=== PATIENT | female | born 1945 | race American Indian/Alaskan Native ===

== ENCOUNTER 2016-07-25 10:51 | Outpatient (CLI) | payer MEDICARE ==
[2016-07-25 13:03] LABS: White Blood Count 8.7 K/mm3 (4.5-11.0)
[2016-07-25 13:04] LABS: Basophils % (Auto) 1.2 % (0.0-1.8); Eosinophils % (Auto) 1.6 % (0.0-4.3); Hematocrit 37.1 % (30.3-42.9); Hemoglobin 11.7 gm/dl (10.1-14.3); Mean Corpuscular HGB Conc 31 % (30-34); Mean Corpuscular Hemoglobin 27 pg (28-32); Mean Corpuscular Volume 85 fl (79-97); Platelet Count 404 K/mm3 (140-440); Red Blood Count 4.34 M/mm3 (3.65-5.03); Red Cell Distribution Width 15.1 % (13.2-15.2)
== END 2016-07-25 10:52 | disposition home or self-care (01) ==
LOC: LAB 10:51
PROVIDERS: ATTEND Internal Medicine
DX: I10 Essential (primary) hypertension (principal); J44.9 Chronic obstructive pulmonary disease, unspecified
CPT/HCPCS: 36415; 80053; 82570; 84156; 85025

== ENCOUNTER 2017-02-23 12:33 | Outpatient (CLI) | payer MEDICARE ==
[2017-02-23 13:02] LABS: Hematocrit 38.7 % (30.3-42.9); Hemoglobin 12.2 gm/dl (10.1-14.3); Mean Corpuscular HGB Conc 31 % (30-34); Mean Corpuscular Hemoglobin 26 pg (28-32); Mean Corpuscular Volume 84 fl (79-97); Platelet Count 412 K/mm3 (140-440); Red Cell Distribution Width 14.9 % (13.2-15.2)
[2017-02-23 13:10] LABS: Creatinine,Urine 22.9 mg/dL (0.1-20.0)
[2017-02-23 13:11] LABS: Protein/Creatinine Ratio,Urine 0.17
[2017-02-23 13:21] LABS: Alanine Aminotransferase 11 units/L (7-56); Albumin 4.2 g/dL (3.9-5); BUN/Creatinine Ratio 14; Blood Urea Nitrogen 13 mg/dL (7-17); Calcium 9.4 mg/dL (8.4-10.2); Hemolysis Index 9
[2017-02-23 14:12] LABS: Basophils % (Manual) 0 % (0.0-1.8); Platelet Estimate Consistent w Auto; RBC Morphology Normal; Total Cells Counted 100
== END 2017-02-23 12:34 | disposition home or self-care (01) ==
LOC: LAB 12:33
PROVIDERS: ATTEND Internal Medicine
DX: I11.0 Hypertensive heart disease with heart failure (principal); I50.9 Heart failure, unspecified; E11.9 Type 2 diabetes mellitus without complications; E87.2 Acidosis; E83.42 Hypomagnesemia; K50.90 Crohn's disease, unspecified, without complications; E87.1 Hypo-osmolality and hyponatremia; E87.6 Hypokalemia; J44.9 Chronic obstructive pulmonary disease, unspecified; J18.9 Pneumonia, unspecified organism
CPT/HCPCS: 36415; 80053; 82570; 84156; 85007; 85025

== ENCOUNTER 2017-05-05 10:04 | Outpatient (CLI) | payer MEDICARE ==
[2017-05-05 10:34] LABS: Basophils # (Auto) 0.1 K/mm3 (0.0-0.1); Basophils % (Auto) 1.3 % (0.0-1.8); Eosinophils # (Auto) 0.1 K/mm3 (0.0-0.4); Eosinophils % (Auto) 0.9 % (0.0-4.3); Hematocrit 37.7 % (30.3-42.9); Hemoglobin 12.3 gm/dl (10.1-14.3); Lymphocytes # (Auto) 2.5 K/mm3 (1.2-5.4); Lymphocytes % (Auto) 23.3 % (13.4-35.0); Mean Corpuscular HGB Conc 33 % (30-34); Mean Corpuscular Hemoglobin 27 pg (28-32); Mean Corpuscular Volume 82 fl (79-97); Monocytes # (Auto) 0.7 K/mm3 (0.0-0.8); Monocytes % (Auto) 6.8 % (0.0-7.3); Platelet Count 383 K/mm3 (140-440); Red Blood Count 4.62 M/mm3 (3.65-5.03); Red Cell Distribution Width 15.7 % (13.2-15.2)
[2017-05-05 10:52] LABS: Alanine Aminotransferase 10 units/L (7-56); BUN/Creatinine Ratio 8; Blood Urea Nitrogen 6 mg/dL (7-17); Calcium 9.1 mg/dL (8.4-10.2); Chol/HDL Ratio 3.19 %; HDL Cholesterol 56 mg/dL (40-59); Hemolysis Index 57
[2017-05-05 11:04] LABS: Erythrocyte Sedimentation Rate 16 mm/Hr (0-20)
[2017-05-05 11:10] LABS: LDL Cholesterol,Direct 116 mg/dL (50-130)
== END 2017-05-05 10:05 | disposition home or self-care (01) ==
LOC: LAB 10:04
DX: I10 Essential (primary) hypertension (principal); K59.1 Functional diarrhea; K50.918 Crohn's disease, unspecified, with other complication; E55.9 Vitamin D deficiency, unspecified; R51 Headache; M54.5 Low back pain; Z79.899 Other long term (current) drug therapy
CPT/HCPCS: 36415; 80053; 80061; 82306; 83036; 84443; 85025; 85652

== ENCOUNTER 2017-06-30 09:08 | Outpatient (CLI) | payer MEDICARE ==
[2017-06-30 09:36] LABS: Basophils # (Auto) 0.1 K/mm3 (0.0-0.1); Basophils % (Auto) 1.1 % (0.0-1.8); Eosinophils # (Auto) 0.2 K/mm3 (0.0-0.4); Hemoglobin 11.6 gm/dl (10.1-14.3); Lymphocytes # (Auto) 3.3 K/mm3 (1.2-5.4); Lymphocytes % (Auto) 32.2 % (13.4-35.0); Mean Corpuscular HGB Conc 32 % (30-34); Mean Corpuscular Hemoglobin 27 pg (28-32); Mean Corpuscular Volume 83 fl (79-97); Monocytes # (Auto) 0.6 K/mm3 (0.0-0.8); Monocytes % (Auto) 5.9 % (0.0-7.3); Platelet Count 387 K/mm3 (140-440); Red Blood Count 4.37 M/mm3 (3.65-5.03); Red Cell Distribution Width 16.1 % (13.2-15.2)
[2017-06-30 09:55] LABS: Alanine Aminotransferase 8 units/L (7-56); Albumin 3.7 g/dL (3.9-5); BUN/Creatinine Ratio 11; Blood Urea Nitrogen 8 mg/dL (7-17); Hemolysis Index 18
[2017-07-03 14:47] LABS: Protein/Creatinine Ratio,Urine 0.07
== END 2017-06-30 09:09 | disposition home or self-care (01) ==
LOC: LAB 09:08
PROVIDERS: ATTEND Internal Medicine
DX: I11.0 Hypertensive heart disease with heart failure (principal); I50.9 Heart failure, unspecified; J44.9 Chronic obstructive pulmonary disease, unspecified; K21.9 Gastro-esophageal reflux disease without esophagitis
CPT/HCPCS: 36415; 80053; 85025

== ENCOUNTER 2017-08-07 09:55 | Outpatient (CLI) | payer MEDICARE ==
[2017-08-07 10:39] LABS: Hematocrit 35.9 % (30.3-42.9); Hemoglobin 11.4 gm/dl (10.1-14.3); Mean Corpuscular HGB Conc 32 % (30-34); Mean Corpuscular Hemoglobin 26 pg (28-32); Mean Corpuscular Volume 83 fl (79-97); Platelet Count 403 K/mm3 (140-440); Red Blood Count 4.32 M/mm3 (3.65-5.03); Red Cell Distribution Width 15.8 % (13.2-15.2)
[2017-08-07 10:58] LABS: Alanine Aminotransferase 11 units/L (7-56); Albumin 3.8 g/dL (3.9-5); BUN/Creatinine Ratio 13; Blood Urea Nitrogen 9 mg/dL (7-17); Calcium 9.7 mg/dL (8.4-10.2); Chol/HDL Ratio 2.81 %; HDL Cholesterol 60 mg/dL (40-59); Hemolysis Index 5; LDL Cholesterol,Direct 113 mg/dL (50-130)
[2017-08-07 11:11] LABS: Free T4 (Free Thyroxine) 1.09 ng/dL (0.76-1.46)
[2017-08-07 12:24] LABS: Platelet Estimate Consistent w Auto; RBC Morphology Normal; Total Cells Counted 100
== END 2017-08-07 09:56 | disposition home or self-care (01) ==
LOC: LAB 09:55
DX: I12.9 Hypertensive chronic kidney disease with stage 1 through stage 4 chronic kidney disease, or unspecified chronic kidney disease (principal); E11.22 Type 2 diabetes mellitus with diabetic chronic kidney disease; E11.42 Type 2 diabetes mellitus with diabetic polyneuropathy; N18.3 Chronic kidney disease, stage 3 (moderate); R53.1 Weakness; R11.0 Nausea; E56.8 Deficiency of other vitamins; K21.9 Gastro-esophageal reflux disease without esophagitis; I25.10 Atherosclerotic heart disease of native coronary artery without angina pectoris; E78.00 Pure hypercholesterolemia, unspecified; J44.9 Chronic obstructive pulmonary disease, unspecified; M19.90 Unspecified osteoarthritis, unspecified site; E07.9 Disorder of thyroid, unspecified; Z87.891 Personal history of nicotine dependence
CPT/HCPCS: 36415; 80053; 80061; 82306; 82607; 82747; 83036; 84439; 84443; 84481; 85007; 85025

== ENCOUNTER 2017-11-02 10:29 | Outpatient (CLI) | payer MEDICARE ==
[2017-11-02 11:48] LABS: Alanine Aminotransferase 6 units/L (7-56); Albumin 4.3 g/dL (3.9-5); BUN/Creatinine Ratio 11; Blood Urea Nitrogen 9 mg/dL (7-17); Calcium 9.5 mg/dL (8.4-10.2); Hemolysis Index 12
[2017-11-02 11:51] LABS: Basophils # (Auto) 0.1 K/mm3 (0.0-0.1); Basophils % (Auto) 1.4 % (0.0-1.8); Eosinophils # (Auto) 0.1 K/mm3 (0.0-0.4); Eosinophils % (Auto) 0.9 % (0.0-4.3); Hematocrit 36.4 % (30.3-42.9); Hemoglobin 11.5 gm/dl (10.1-14.3); Lymphocytes % (Auto) 23.6 % (13.4-35.0); Mean Corpuscular HGB Conc 32 % (30-34); Mean Corpuscular Hemoglobin 27 pg (28-32); Mean Corpuscular Volume 85 fl (79-97); Monocytes # (Auto) 0.5 K/mm3 (0.0-0.8); Monocytes % (Auto) 6.2 % (0.0-7.3); Platelet Count 461 K/mm3 (140-440); Red Cell Distribution Width 15.4 % (13.2-15.2)
[2017-11-03 11:22] LABS: Creatinine,Urine 36.7 mg/dL (0.1-20.0)
[2017-11-04 10:25] LABS: Protein/Creatinine Ratio,Urine 0.08
== END 2017-11-02 10:30 | disposition home or self-care (01) ==
LOC: LAB 10:29
PROVIDERS: ATTEND Internal Medicine
DX: I10 Essential (primary) hypertension (principal); I25.10 Atherosclerotic heart disease of native coronary artery without angina pectoris; E78.00 Pure hypercholesterolemia, unspecified; J44.9 Chronic obstructive pulmonary disease, unspecified; K21.9 Gastro-esophageal reflux disease without esophagitis; M19.90 Unspecified osteoarthritis, unspecified site; E11.9 Type 2 diabetes mellitus without complications; Z87.891 Personal history of nicotine dependence; Z90.89 Acquired absence of other organs; Z90.710 Acquired absence of both cervix and uterus
CPT/HCPCS: 36415; 80053; 82570; 84156; 85025

== ENCOUNTER 2018-02-07 09:31 | Inpatient (IN) | payer MEDICARE ==
[2018-02-07] MEDS ORDERED: PROVENTIL IH ONE ×3 (09:42→13:04)
[2018-02-07] MEDS ORDERED: SOLU-Medrol IV ONE (09:42)
--- NOTE | 2018-02-07 09:43 | Emergency Department Report ---
ED Asthma HPI - General Chief Complaint: Adult Asthma Stated Complaint: ASTHMA/WHEEZING Time Seen by Provider: 02/07/18 09:42 Source: patient, family Mode of arrival: Ambulatory Limitations: No Limitations - History of Present Illness Initial Comments: Patient is a 73-year-old -Martiniquais female who presents to the emergency room complaining of asthma attack and wheezing. She walked from triage to room 36 and was short of breath. Denying chest pain. She had audible wheezing. MD Complaint: shortness of breath, wheezing -: Gradual, days(s) Severity: mild - Related Data Home Medications Medication Instructions Recorded Confirmed Last Taken Albuterol Sulfate [Ventolin HFA] 2 puff IH BID PRN 10/18/12 10/18/12 Unknown Atorvastatin [Lipitor] 40 mg PO DAILY 10/18/12 10/18/12 Unknown Calcium Carbonate/Vitamin D3 1 each PO DAILY 10/18/12 10/18/12 Unknown [Calcium 600 + Vit D Tablet] Cholecalciferol (Vitamin D3) 2,000 unit PO DAILY 10/18/12 10/18/12 Unknown [Vitamin D] Dexlansoprazole [Dexilant] 60 mg PO QDAY 10/18/12 10/18/12 Unknown Fenofibrate,Micronized [Lofibra] 60 mg PO QDAY 10/18/12 10/18/12 Unknown Insulin Detemir [Levemir Flexpen] 100 unit SQ DAILY 10/18/12 10/18/12 Unknown Lisinopril [Zestril] 20 mg PO QDAY 10/18/12 10/18/12 Unknown Mometasone Furoate [Nasonex] 2 spray NS BID 10/18/12 10/18/12 Unknown Nitroglycerin [place] [Nitromist] 1 spray TL PRN PRN 10/18/12 10/18/12 Unknown RX: Aspirin [Aspirin TAB] 325 mg PO QDAY 10/18/12 10/18/12 Unknown RX: Magnesium 400 mg PO DAILY 10/18/12 10/18/12 Unknown RX: Potassium Citrate [Potassium 10 meq PO BID 10/18/12 10/18/12 Unknown Citrate ER] RX: Sodium Bicarbonate 650 mg PO BID 10/18/12 10/18/12 Unknown RX: Spironolactone 25 mg PO DAILY 10/18/12 10/18/12 Unknown amLODIPine [Norvasc] 5 mg PO DAILY 10/18/12 10/18/12 Unknown busPIRone [Buspar] 15 mg PO BID 10/18/12 10/18/12 Unknown Allergies Allergy/AdvReac Type Severity Reaction Status Date / Time No Known Allergies Allergy Verified 11/02/12 11:23 ED Review of Systems ROS: Stated complaint: ASTHMA/WHEEZING Other details as noted in HPI Comment: All other systems reviewed and negative Constitutional: denies: chills, fever Eyes: denies: eye pain, eye discharge ENT: denies: ear pain, throat pain, dental pain Respiratory: see HPI, cough, wheezing Cardiovascular: dyspnea on exertion. denies: chest pain, palpitations, orthopnea Endocrine: denies: excessive sweating Gastrointestinal: denies: nausea Genitourinary: denies: urgency Musculoskeletal: denies: back pain Skin: denies: lesions Neurological: denies: headache Psychiatric: denies: anxiety Hematological/Lymphatic: denies: easy bleeding ED Past Medical Hx - Past Medical History Hx Hypertension: Yes (diagnosed in 1988) Hx Heart Attack/AMI: Yes (x2. 10-11 years ago) Hx Diabetes: Yes (steroid induced insulin use/2011) Hx GERD: Yes (2002) Hx Liver Disease: No Hx Renal Disease: Yes (pt sees a hog cooler but does not remember the name of disease) Hx Sickle Cell Disease: No Hx Arthritis: Yes Hx Seizures: No Hx Asthma: No Hx COPD: Yes Additional medical history: Chrones - Surgical History Hx Pacemaker: No Hx Internal Defibrillator: No Additional Surgical History: hip replacement bilat, hysterectomy, bilat shoulder replacement. - Family History Family history: no significant - Social History Smoking Status: Never Smoker - Medications Home Medications: Home Medications Medication Instructions Recorded Confirmed Last Taken Type Albuterol Sulfate [Ventolin HFA] 2 puff IH BID PRN 10/18/12 10/18/12 Unknown History Atorvastatin [Lipitor] 40 mg PO DAILY 10/18/12 10/18/12 Unknown History Calcium Carbonate/Vitamin D3 1 each PO DAILY 10/18/12 10/18/12 Unknown History [Calcium 600 + Vit D Tablet] Cholecalciferol (Vitamin D3) 2,000 unit PO DAILY 10/18/12 10/18/12 Unknown History [Vitamin D] Dexlansoprazole [Dexilant] 60 mg PO QDAY 10/18/12 10/18/12 Unknown History Fenofibrate,Micronized [Lofibra] 60 mg PO QDAY 10/18/12 10/18/12 Unknown History Insulin Detemir [Levemir Flexpen] 100 unit SQ DAILY 10/18/12 10/18/12 Unknown History Lisinopril [Zestril] 20 mg PO QDAY 10/18/12 10/18/12 Unknown History Mometasone Furoate [Nasonex] 2 spray NS BID 10/18/12 10/18/12 Unknown History Nitroglycerin [place] [Nitromist] 1 spray TL PRN PRN 10/18/12 10/18/12 Unknown History RX: Aspirin [Aspirin TAB] 325 mg PO QDAY 10/18/12 10/18/12 Unknown History RX: Magnesium 400 mg PO DAILY 10/18/12 10/18/12 Unknown History RX: Potassium Citrate [Potassium 10 meq PO BID 10/18/12 10/18/12 Unknown History Citrate ER] RX: Sodium Bicarbonate 650 mg PO BID 10/18/12 10/18/12 Unknown History RX: Spironolactone 25 mg PO DAILY 10/18/12 10/18/12 Unknown History amLODIPine [Norvasc] 5 mg PO DAILY 10/18/12 10/18/12 Unknown History busPIRone [Buspar] 15 mg PO BID 10/18/12 10/18/12 Unknown History ED Physical Exam - General Limitations: No Limitations General appearance: alert, in no apparent distress - Head Head exam: Present: atraumatic - Eye Eye exam: Present: normal appearance, PERRL, EOMI - ENT ENT exam: Present: mucous membranes moist - Neck Neck exam: Present: normal inspection - Respiratory Respiratory exam: Present: wheezes - Cardiovascular Cardiovascular Exam: Present: regular rate - GI/Abdominal GI/Abdominal exam: Present: soft, normal bowel sounds - Rectal Rectal exam: Present: deferred - Extremities Exam Extremities exam: Present: normal inspection, full ROM - Back Exam Back exam: Present: normal inspection, full ROM - Neurological Exam Neurological exam: Present: alert, oriented X3 - Psychiatric Psychiatric exam: Present: normal affect, normal mood - Skin Skin exam: Present: warm, dry, intact ED Course Vital Signs 02/07/18 02/07/18 02/07/18 09:34 09:45 10:25 Temperature 99.5 F Pulse Rate 80 Pulse Rate [ 80 85 Anterior Bilateral Throughout] Respiratory 20 Rate Respiratory 20 20 Rate [Anterior Bilateral Throughout] Blood Pressure 101/77 O2 Sat by Pulse 98 Oximetry 02/07/18 02/07/18 02/07/18 11:20 11:50 13:10 Temperature Pulse Rate Pulse Rate [ 82 87 83 Anterior Bilateral Throughout] Respiratory Rate Respiratory 18 18 18 Rate [Anterior Bilateral Throughout] Blood Pressure O2 Sat by Pulse Oximetry - Reevaluation(s) Reevaluation #1: 02/07/18 After 2 DuoNeb treatments and IV Solu-Medrol patient's wheezing actually worsened. Magnesium 2 g IV was given without much improvement. Oxygen saturation was noted to be 89 on room air on repeat vital signs. The patient was placed on 2 L nasal cannula and saturations went to 98%. ABG was drawn on room air, however, the respiratory therapist did not wait an adequate amount of time before removing the nasal cannula when she treated gas. With this being said the PaO2 was 70. Patient is not hypercarbic and her pH is normal. Her sat on gas was 95%. Chest x-ray is without consolidation. There is no evidence of pulmonary edema or heart failure. Patient is not tachycardic as one would expect she would be if she had a PE. She has no history of PE. Patient denies any chest pain. Labs have been noted. The CBC is normal. Patient is afebrile. Given patient's persistent wheezing despite IV Solu-Medrol, to do her nebs, and 2 g of mag patient is being moved to the main ED for further management by Dr. Sullivan. Note Oxygen sat to 89 on room air at rest With 2 L NC it goes to 98-99. RN asked to chart. Pt not tachycardic. ED Medical Decision Making - Lab Data Result diagrams: 02/07/18 09:46 02/07/18 09:46 - Radiology Data Radiology results: report reviewed, image reviewed - Medical Decision Making Treatment in ACC: 2 duoneb, 125 mg IV solumedral, 500 mg PO azithromycin and 2 GM IV Mg Given persistent wheezing pt moved to ER [address] Sullivan. Lab Results 02/07/18 02/07/18 Range/Units 09:46 09:46 WBC 7.4 (4.5-11.0) K/mm3 RBC 4.52 (3.65-5.03) M/mm3 Hgb 12.0 (10.1-14.3) gm/dl Hct 36.2 (30.3-42.9) % MCV 80 (79-97) fl MCH 27 L (28-32) pg MCHC 33 (30-34) % RDW 16.5 H (13.2-15.2) % Plt Count 337 (140-440) K/mm3 Add Manual Diff Complete Total Counted 100 Seg Neuts % (Manual) 60.0 (40.0-70.0) % Band Neutrophils % 1.0 % Lymphocytes % (Manual) 20.0 (13.4-35.0) % Reactive Lymphs % (Man) 0 % Monocytes % (Manual) 13.0 H (0.0-7.3) % Eosinophils % (Manual) 6.0 H (0.0-4.3) % Basophils % (Manual) 0 (0.0-1.8) % Metamyelocytes % 0 % Myelocytes % 0 % Promyelocytes % 0 % Blast Cells % 0 % Nucleated RBC % Not Reportable Seg Neutrophils # Man 0.0 L (1.8-7.7) K/mm3 Band Neutrophils # 0.0 K/mm3 Lymphocytes # (Manual) 0.0 L (1.2-5.4) K/mm3 Abs React Lymphs (Man) 0.0 K/mm3 Monocytes # (Manual) 0.0 (0.0-0.8) K/mm3 Eosinophils # (Manual) 0.0 (0.0-0.4) K/mm3 Basophils # (Manual) 0.0 (0.0-0.1) K/mm3 Metamyelocytes # 0.0 K/mm3 Myelocytes # 0.0 K/mm3 Promyelocytes # 0.0 K/mm3 Blast Cells # 0.0 K/mm3 WBC Morphology Not Reportable Hypersegmented Neuts Not Reportable Hyposegmented Neuts Not Reportable Hypogranular Neuts Not Reportable Smudge Cells Not Reportable Toxic Granulation Not Reportable Toxic Vacuolation Not Reportable Dohle Bodies Not Reportable Pelger-Huet Anomaly Not Reportable Samuel Rods Not Reportable Platelet Estimate Appears normal Clumped Platelets Rare Plt Clumps, EDTA Not Reportable Large Platelets Not Reportable Giant Platelets Not Reportable Platelet Satelliting Not Reportable Plt Morphology Comment Not Reportable RBC Morphology Normal Dimorphic RBCs Not Reportable Polychromasia Not Reportable Hypochromasia Not Reportable Poikilocytosis Not Reportable Anisocytosis Not Reportable Microcytosis Not Reportable Macrocytosis Not Reportable Spherocytes Not Reportable Pappenheimer Bodies Not Reportable Sickle Cells Not Reportable Target Cells Not Reportable Tear Drop Cells Not Reportable Ovalocytes Not Reportable Helmet Cells Not Reportable [place] Bodies Not Reportable [place] Rings Not Reportable [place] Cells Not Reportable Bite Cells Not Reportable Crenated Cell Not Reportable Elliptocytes Not Reportable Acanthocytes (Spur) Not Reportable Rouleaux Not Reportable Hemoglobin C Crystals Not Reportable Schistocytes Not Reportable Malaria parasites Not Reportable Mika Bodies Not Reportable Hem Pathologist Commnt No Sodium 137 (137-145) mmol/L Potassium 3.9 (3.6-5.0) mmol/L Chloride 98.9 (98-107) mmol/L Carbon Dioxide 22 (22-30) mmol/L Anion Gap 20 mmol/L BUN 6 L (7-17) mg/dL Creatinine 0.7 (0.7-1.2) mg/dL Estimated GFR > 60 ml/min BUN/Creatinine Ratio 9 % Glucose 132 H (65-100) mg/dL Calcium 9.0 (8.4-10.2) mg/dL Total Bilirubin < 0.20 (0.1-1.2) mg/dL AST 38 (5-40) units/L ALT 18 (7-56) units/L Alkaline Phosphatase 97 (35-129) units/L Total Protein 7.3 (6.3-8.2) g/dL Albumin 3.8 L (3.9-5) g/dL Albumin/Globulin Ratio 1.1 % Critical care attestation.: If time is entered above; I have spent that time in minutes in the direct care of this critically ill patient, excluding procedure time. ED Disposition Clinical Impression: Asthma Disposition: DC- OP ADMIT IP TO THIS HOSP Is pt being admited?: No Does the pt Need Aspirin: No Condition: Stable Instructions: Asthma (ED) Referrals: PRIMARY CARE, [Primary Care Provider] - 3-5 Days
[2018-02-07 10:11] LABS: Hematocrit 36.2 % (30.3-42.9); Mean Corpuscular HGB Conc 33 % (30-34); Mean Corpuscular Hemoglobin 27 pg (28-32); Mean Corpuscular Volume 80 fl (79-97); Red Blood Count 4.52 M/mm3 (3.65-5.03); Red Cell Distribution Width 16.5 % (13.2-15.2)
[2018-02-07 10:29] LABS: Alanine Aminotransferase 18 units/L (7-56); Albumin 3.8 g/dL (3.9-5); BUN/Creatinine Ratio 9; Blood Urea Nitrogen 6 mg/dL (7-17); Hemolysis Index 89
--- NOTE | 2018-02-07 10:41 | XRay Report ---
CHEST 2 VIEWS INDICATION: Shortness of breath. COMPARISON: 09/01/2011 FINDINGS: Frontal and lateral chest radiographs demonstrate normal cardiomediastinal silhouette. Mild aortic knob calcifications. Right hemidiaphragm again approximately 4.5 cm higher than the left. Clear lungs. Stable left and new right shoulder replacement. Lower lumbar posterior fusion hardware incompletely imaged. Abdominal aortic atherosclerotic calcifications also seen. Demineralized bones. CONCLUSION: No acute chest process with interval right shoulder replacement since 2011. Thank you for the opportunity to participate in this patient's care.
[2018-02-07] MEDS ORDERED: ZITHROMAX PO ONE ×2 (10:45)
[2018-02-07 10:53] LABS: Basophils % (Manual) 0 % (0.0-1.8); Total Cells Counted 100
[2018-02-07 10:54] LABS: Platelet Clumps Rare; Platelet Count 337 K/mm3 (140-440); RBC Morphology Normal
[2018-02-07] MEDS ORDERED: MOTRIN PO ONE (11:14)
[2018-02-07] MEDS ORDERED: MAGNESIUM SULFATE 2GM/50ML 2 GM/50 ML BAG IV ONE (11:30)
[2018-02-07] MEDS ORDERED: ATROVENT IH ONE (13:04)
--- NOTE | 2018-02-07 13:10 | Emergency Department Report ---
HPI - General Chief Complaint: Adult Asthma Time Seen by Provider: 02/07/18 09:42 - HPI HPI: Room 6 The patient is a 73-year-old female from the [facility] for further management with chief complaint of shortness of breath. The patient reports shortness of breath and wheezing for one week. Patient states she's had a cough productive of yellow sputum and a fever of 101F MAXIMUM TEMPERATURE. Patient admits to rhinorrhea but denies any sick contacts. She states she's also had intermittent chest heaviness for one week but denies nausea/vomiting or diaphoresis. Location: Lungs, chest Duration: One week Quality: Shortness of breath/wheezing Severity: Moderate Modifying factors: [see above] Context: [see above] Mode of transportation: [not driving] ED Past Medical Hx - Past Medical History Hx Hypertension: Yes (diagnosed in 1988) Hx Heart Attack/AMI: Yes (x2. 10-11 years ago) Hx Diabetes: Yes (steroid induced insulin use/2011) Hx GERD: Yes (2002) Hx Renal Disease: Yes (pt sees a supervisor counseling and guidance but does not remember the name of disease) Hx Arthritis: Yes Hx COPD: Yes Additional medical history: Chrones - Surgical History Additional Surgical History: hip replacement bilat, hysterectomy, bilat shoulder replacement. - Family History Family history: no significant - Social History Smoking Status: Former Smoker (none 15 years) Substance Use Type: Alcohol (occasional beer) - Medications Home Medications: Home Medications Medication Instructions Recorded Confirmed Last Taken Type Albuterol Sulfate [Ventolin HFA] 2 puff IH BID PRN 10/18/12 10/18/12 Unknown History Aspirin [Aspirin TAB] 325 mg PO QDAY 10/18/12 10/18/12 Unknown History Atorvastatin [Lipitor] 40 mg PO DAILY 10/18/12 10/18/12 Unknown History Calcium Carbonate/Vitamin D3 1 each PO DAILY 10/18/12 10/18/12 Unknown History [Calcium 600 + Vit D Tablet] Cholecalciferol (Vitamin D3) 2,000 unit PO DAILY 10/18/12 10/18/12 Unknown History [Vitamin D] Dexlansoprazole [Dexilant] 60 mg PO QDAY 10/18/12 10/18/12 Unknown History Fenofibrate,Micronized [Lofibra] 60 mg PO QDAY 10/18/12 10/18/12 Unknown History Insulin Detemir [Levemir Flexpen] 100 unit SQ DAILY 10/18/12 10/18/12 Unknown History Lisinopril [Zestril] 20 mg PO QDAY 10/18/12 10/18/12 Unknown History Magnesium 400 mg PO DAILY 10/18/12 10/18/12 Unknown History Mometasone Furoate [Nasonex] 2 spray NS BID 10/18/12 10/18/12 Unknown History Nitroglycerin [place] [Nitromist] 1 spray TL PRN PRN 10/18/12 10/18/12 Unknown History Potassium Citrate [Potassium 10 meq PO BID 10/18/12 10/18/12 Unknown History Citrate ER] Sodium Bicarbonate 650 mg PO BID 10/18/12 10/18/12 Unknown History Spironolactone 25 mg PO DAILY 10/18/12 10/18/12 Unknown History amLODIPine [Norvasc] 5 mg PO DAILY 10/18/12 10/18/12 Unknown History busPIRone [Buspar] 15 mg PO BID 10/18/12 10/18/12 Unknown History ED Review of Systems ROS: Stated complaint: ASTHMA/WHEEZING Other details as noted in HPI Constitutional: fever Eyes: denies: eye pain ENT: denies: throat pain Respiratory: cough, wheezing Cardiovascular: chest pain Endocrine: no symptoms reported Gastrointestinal: denies: abdominal pain Genitourinary: denies: dysuria Musculoskeletal: denies: back pain Neurological: denies: headache Physical Exam - Physical Exam Vital Signs: Vital Signs 02/07/18 02/07/18 02/07/18 09:34 09:45 10:25 Temperature 99.5 F Pulse Rate 80 Pulse Rate [ 80 85 Anterior Bilateral Throughout] Respiratory 20 Rate Respiratory 20 20 Rate [Anterior Bilateral Throughout] Blood Pressure 101/77 O2 Sat by Pulse 98 Oximetry 02/07/18 02/07/18 11:20 11:50 Temperature Pulse Rate Pulse Rate [ 82 87 Anterior Bilateral Throughout] Respiratory Rate Respiratory 18 18 Rate [Anterior Bilateral Throughout] Blood Pressure O2 Sat by Pulse Oximetry Physical Exam: GENERAL: The patient is well-developed well-nourished female sitting on stretcher not appearing to be in acute distress. [] HEENT: Normocephalic. Atraumatic. Extraocular motions are intact. Patient has moist mucous membranes. NECK: Supple. Trachea midline CHEST/LUNGS: Diffuse wheezing. There is no respiratory distress noted. HEART/CARDIOVASCULAR: Regular. There is no tachycardia. There is no gallop rub or murmur. ABDOMEN: Abdomen is soft, nontender. Patient has normal bowel sounds. There is no abdominal distention. SKIN: There is no rash. There is no edema. There is no diaphoresis. NEURO: The patient is awake, alert, and oriented. The patient is cooperative. The patient has normal speech MUSCULOSKELETAL: There is no evidence of acute injury. ED Course Vital Signs 02/07/18 02/07/18 02/07/18 09:34 09:45 10:25 Temperature 99.5 F Pulse Rate 80 Pulse Rate [ 80 85 Anterior Bilateral Throughout] Respiratory 20 Rate Respiratory 20 20 Rate [Anterior Bilateral Throughout] Blood Pressure 101/77 O2 Sat by Pulse 98 Oximetry 02/07/18 02/07/18 11:20 11:50 Temperature Pulse Rate Pulse Rate [ 82 87 Anterior Bilateral Throughout] Respiratory Rate Respiratory 18 18 Rate [Anterior Bilateral Throughout] Blood Pressure O2 Sat by Pulse Oximetry ED Medical Decision Making - Lab Data Result diagrams: 02/07/18 09:46 02/07/18 09:46 Laboratory Tests 02/07/18 02/07/18 02/07/18 09:46 09:46 09:46 WBC 7.4 RBC 4.52 Hgb 12.0 Hct 36.2 MCV 80 MCH 27 L MCHC 33 RDW 16.5 H Plt Count 337 Add Manual Diff Complete Total Counted 100 Seg Neuts % (Manual) 60.0 Band Neutrophils % 1.0 Lymphocytes % (Manual) 20.0 Reactive Lymphs % (Man) 0 Monocytes % (Manual) 13.0 H Eosinophils % (Manual) 6.0 H Basophils % (Manual) 0 Metamyelocytes % 0 Myelocytes % 0 Promyelocytes % 0 Blast Cells % 0 Nucleated RBC % Not Reportable Seg Neutrophils # Man 0.0 L Band Neutrophils # 0.0 Lymphocytes # (Manual) 0.0 L Abs React Lymphs (Man) 0.0 Monocytes # (Manual) 0.0 Eosinophils # (Manual) 0.0 Basophils # (Manual) 0.0 Metamyelocytes # 0.0 Myelocytes # 0.0 Promyelocytes # 0.0 Blast Cells # 0.0 WBC Morphology Not Reportable Hypersegmented Neuts Not Reportable Hyposegmented Neuts Not Reportable Hypogranular Neuts Not Reportable Smudge Cells Not Reportable Toxic Granulation Not Reportable Toxic Vacuolation Not Reportable Dohle Bodies Not Reportable Pelger-Huet Anomaly Not Reportable Samuel Rods Not Reportable Platelet Estimate Appears normal Clumped Platelets Rare Plt Clumps, EDTA Not Reportable Large Platelets Not Reportable Giant Platelets Not Reportable Platelet Satelliting Not Reportable Plt Morphology Comment Not Reportable RBC Morphology Normal Dimorphic RBCs Not Reportable Polychromasia Not Reportable Hypochromasia Not Reportable Poikilocytosis Not Reportable Anisocytosis Not Reportable Microcytosis Not Reportable Macrocytosis Not Reportable Spherocytes Not Reportable Pappenheimer Bodies Not Reportable Sickle Cells Not Reportable Target Cells Not Reportable Tear Drop Cells Not Reportable Ovalocytes Not Reportable Helmet Cells Not Reportable [place] Bodies Not Reportable [place] Rings Not Reportable [place] Cells Not Reportable Bite Cells Not Reportable Crenated Cell Not Reportable Elliptocytes Not Reportable Acanthocytes (Spur) Not Reportable Rouleaux Not Reportable Hemoglobin C Crystals Not Reportable Schistocytes Not Reportable Malaria parasites Not Reportable Mika Bodies Not Reportable Hem Pathologist Commnt No POC ABG pH POC ABG pCO2 POC ABG pO2 POC ABG HCO3 POC ABG Total CO2 POC ABG O2 Sat POC ABG Base Excess FiO2 Sodium 137 Potassium 3.9 Chloride 98.9 Carbon Dioxide 22 Anion Gap 20 BUN 6 L Creatinine 0.7 Estimated GFR > 60 BUN/Creatinine Ratio 9 Glucose 132 H Calcium 9.0 Total Bilirubin < 0.20 AST 38 ALT 18 Alkaline Phosphatase 97 Total Creatine Kinase 254 H CK-MB (CK-2) 1.9 CK-MB (CK-2) Rel Index 0.7 Troponin T < 0.010 NT-Pro-B Natriuret Pep Total Protein 7.3 Albumin 3.8 L Albumin/Globulin Ratio 1.1 Influenza A (Rapid) Influenza B (Rapid) 02/07/18 02/07/18 02/07/18 09:46 12:19 Unknown WBC RBC Hgb Hct MCV MCH MCHC RDW Plt Count Add Manual Diff Total Counted Seg Neuts % (Manual) Band Neutrophils % Lymphocytes % (Manual) Reactive Lymphs % (Man) Monocytes % (Manual) Eosinophils % (Manual) Basophils % (Manual) Metamyelocytes % Myelocytes % Promyelocytes % Blast Cells % Nucleated RBC % Seg Neutrophils # Man Band Neutrophils # Lymphocytes # (Manual) Abs React Lymphs (Man) Monocytes # (Manual) Eosinophils # (Manual) Basophils # (Manual) Metamyelocytes # Myelocytes # Promyelocytes # Blast Cells # WBC Morphology Hypersegmented Neuts Hyposegmented Neuts Hypogranular Neuts Smudge Cells Toxic Granulation Toxic Vacuolation Dohle Bodies Pelger-Huet Anomaly Samuel Rods Platelet Estimate Clumped Platelets Plt Clumps, EDTA Large Platelets Giant Platelets Platelet Satelliting Plt Morphology Comment RBC Morphology Dimorphic RBCs Polychromasia Hypochromasia Poikilocytosis Anisocytosis Microcytosis Macrocytosis Spherocytes Pappenheimer Bodies Sickle Cells Target Cells Tear Drop Cells Ovalocytes Helmet Cells [place] Bodies [place] Rings [place] Cells Bite Cells Crenated Cell Elliptocytes Acanthocytes (Spur) Rouleaux Hemoglobin C Crystals Schistocytes Malaria parasites Mika Bodies Hem Pathologist Commnt POC ABG pH 7.447 POC ABG pCO2 32.2 L POC ABG pO2 71 L POC ABG HCO3 22.3 POC ABG Total CO2 23 POC ABG O2 Sat 95 POC ABG Base Excess -2 FiO2 21 Sodium Potassium Chloride Carbon Dioxide Anion Gap BUN Creatinine Estimated GFR BUN/Creatinine Ratio Glucose Calcium Total Bilirubin AST ALT Alkaline Phosphatase Total Creatine Kinase CK-MB (CK-2) CK-MB (CK-2) Rel Index Troponin T NT-Pro-B Natriuret Pep 25.51 Total Protein Albumin Albumin/Globulin Ratio Influenza A (Rapid) Positive A Influenza B (Rapid) Negative - EKG Data -: EKG Interpreted by Me EKG shows normal: sinus rhythm Rate: normal - EKG Data When compared to previous EKG there are: previous EKG unavailable Interpretation: other (no ischemic changes seen) - Radiology Data Radiology results: report reviewed (chest x-ray), image reviewed (chest x-ray) interpreted by me: Chest x-ray-no focal infiltrates, no pneumothorax Findings [facility] [address] [place] [address] XRay Report Signed Patient: SARAI RAMOS MR#: [id number] : 1945 A cct:[id number] Age/Sex: 73 / F ADM Date: 02/07/18 Loc: ED Attending Dr: Ordering Physician: DOROTHY TAYLOR Date of Service: 02/07/18 Procedure(s): XR chest routine 2V Accession Number(s): [id number] cc: DOROTHY TAYLOR Fluoro Time In Minutes: CHEST 2 VIEWS INDICATION: Shortness of breath. COMPARISON: 09/01/2011 FINDINGS: Frontal and lateral chest radiographs demonstrate normal cardiomediastinal silhouette. Mild aortic knob calcifications. Right hemidiaphragm again approximately 4.5 cm higher than the left. Clear lungs. Stable left and new right shoulder replacement. Lower lumbar posterior fusion hardware incompletely imaged. Abdominal aortic atherosclerotic calcifications also seen. Demineralized bones. CONCLUSION: No acute chest process with interval right shoulder replacement since 2011. Thank you for the opportunity to participate in this patient's care. Transcribed By: RS Dictated By: MARINA CARSON MD Electronically Authenticated By: MARINA CARSON MD Signed Date/Time: 02/07/18 1037 DD/ 1034 TD/TT: 02/07/18 1037 - Differential Diagnosis asthma exacerbation, pneumonia, bronchitis, CHF, ACS Critical care attestation.: If time is entered above; I have spent that time in minutes in the direct care of this critically ill patient, excluding procedure time. ED Disposition Clinical Impression: Asthma, Shortness of breath, Acute asthma exacerbation, Chest heaviness, Influenza Disposition: OP ADMIT IP TO THIS HOSP Is pt being admited?: Yes Does the pt Need Aspirin: Yes Condition: Stable Instructions: Asthma (ED) Referrals: PRIMARY CARE, [Primary Care Provider] - 3-5 Days Time of Disposition: 13:41 (hospitalist notified (Dr Carrington))
[2018-02-07 13:27] LABS: Creatine Kinase MB 1.9 ng/mL (0.0-4.0)
--- NOTE | 2018-02-07 13:41 | History and Physical Report ---
History of Present Illness Chief complaint: I cant breathe, and i just feel tired History of present illness: 73 YO Female with HTN, CA, DM, GERD, OA, COPD presents to ED for evalualtion. Pt states that she has experienced generalized fatigue, shortness of breath over the past week with persistent symptoms during the same time frame. Pt acknowledges fever to 101, productive cough of yellow sputum as well as runny n ose. Pt denies CP, Palpitations, NVD, Trauma, skin rash, or recent ill contacts, unilateral leg swelling, calf pain, prolonged travel/immobility, hemoptysis, individual/family history of DVT/PE/Blood Clotting disorder, Calf pain. Pt seen and evaluated in ED and found to have COPD exacerbation, complicated by Acute respiratory failure as well as influenza. Pt treated with supplemental oxygen, empiric antibiotic therapy and initiated on Tamiflu. Pt placed on droplet precaution. Pt admitted to medical floor. Past History Past Medical History: acute CA, arthritis, COPD, diabetes, GERD, other (Crohns Disease) Past Surgical History: hysterectomy, total hip replacement, Other (shoulder surgery) Social history: . denies: smoking, alcohol abuse, prescription drug abuse Family history: denies: no significant family history, CAD, cancer, diabetes Medications and Allergies Allergies Allergy/AdvReac Type Severity Reaction Status Date / Time No Known Allergies Allergy Verified 11/02/12 11:23 Home Medications Medication Instructions Recorded Confirmed Last Taken Type Albuterol Sulfate [Ventolin HFA] 2 puff IH BID PRN 10/18/12 02/07/18 02/06/18 History Aspirin [Aspirin TAB] 325 mg PO QDAY 10/18/12 02/07/18 02/06/18 History Atorvastatin [Lipitor] 40 mg PO DAILY 10/18/12 02/07/18 02/06/18 History Calcium Carbonate/Vitamin D3 1 each PO DAILY 10/18/12 02/07/18 02/06/18 History [Calcium 600 + Vit D Tablet] Cholecalciferol (Vitamin D3) 2,000 unit PO DAILY 10/18/12 02/07/18 02/06/18 History [Vitamin D] Dexlansoprazole [Dexilant] 60 mg PO QDAY 10/18/12 02/07/18 02/06/18 History Fenofibrate,Micronized [Lofibra] 60 mg PO QDAY 10/18/12 02/07/18 02/06/18 History Insulin Detemir [Levemir Flexpen] 27 units SUB-Q QPM 10/18/12 02/07/18 02/06/18 History Lisinopril [Zestril] 20 mg PO QDAY 10/18/12 02/07/18 02/06/18 History Magnesium 400 mg PO DAILY 10/18/12 02/07/18 02/06/18 History Mometasone Furoate [Nasonex] 2 spray NS BID 10/18/12 02/07/18 Unknown History Nitroglycerin [place] [Nitromist] 1 spray TL PRN PRN 10/18/12 02/07/18 Unknown History Potassium Citrate [Potassium 10 meq PO BID 10/18/12 02/07/18 02/06/18 History Citrate ER] Sodium Bicarbonate 650 mg PO BID 10/18/12 02/07/18 02/06/18 History Spironolactone 25 mg PO DAILY 10/18/12 02/07/18 02/06/18 History amLODIPine [Norvasc] 5 mg PO DAILY 10/18/12 02/07/18 02/06/18 History busPIRone [Buspar] 15 mg PO BID 10/18/12 02/07/18 02/06/18 History Review of Systems Constitutional: no weight loss, no weight gain, no fever, no chills Ears, nose, mouth and throat: no ear pain, no ear discharge, no tinnitis, no decreased hearing, no nose pain Breasts: no change in shape, no swelling, no mass Cardiovascular: no chest pain, no orthopnea, no palpitations, no rapid/irregular heart beat, no edema Respiratory: cough, shortness of breath, congestion, wheezing, no pain on inspiration Gastrointestinal: no nausea, no vomiting, no diarrhea, no constipation Genitourinary Female: no dysmenorrhea, no pelvic pain, no flank pain, no menorrhagia, no dysuria, no urinary frequency, no urgency Rectal: no pain, no incontinence, no bleeding Musculoskeletal: no neck stiffness, no neck pain, no shooting arm pain, no arm numbness/tingling, no low back pain Integumentary: no rash, no pruritis, no redness, no sores, no wounds Neurological: no head injury, no transient paralysis, no paralysis, no weakness, no parathesias, no numbness, no tingling, no seizures Psychiatric: no anxiety, no change in sleep habits, no sleep disturbances, no insomnia, no paranoia, no hopelessness, no anhedonia Endocrine: no cold intolerance, no heat intolerance, no polyphagia, no excessive thirst, no polydipsia, no excessive sweating Hematologic/Lymphatic: no easy bruising, no easy bleeding, no lymphadenopathy, no lymphedema Allergic/Immunologic: no urticaria, no allergic rhinitis, no wheezing, no persistent infections, no anaphylaxis Exam - Constitutional Vitals: Temp Pulse Resp BP Pulse Ox 99.5 F 83 18 101/77 98 02/07/18 09:34 02/07/18 13:10 02/07/18 13:10 02/07/18 09:34 02/07/18 09:34 General appearance: Present: mild distress, obese - EENT Eyes: Present: PERRL ENT: hearing intact, clear oral mucosa - Neck Neck: Present: supple, normal ROM - Respiratory Respiratory effort: normal Respiratory: bilateral: diminished, wheezing - Cardiovascular Heart Sounds: Present: S1 & S2. Absent: rub, click - Extremities Extremities: pulses symmetrical, No edema Peripheral Pulses: within normal limits - Abdominal General gastrointestinal: Present: soft, non-tender, non-distended, normal bowel sounds Female genitourinary: Present: normal - Integumentary Integumentary: Present: clear, warm, dry - Musculoskeletal Musculoskeletal: gait normal, strength equal bilaterally - Psychiatric Psychiatric: appropriate mood/affect, intact judgment & insight - Neurologic Neurologic: CNII-XII intact, moves all extremities Results - Labs CBC & Chem 7: 02/07/18 09:46 02/07/18 09:46 Labs: Abnormal lab results 02/07/18 02/07/18 02/07/18 Range/Units 09:46 09:46 09:46 MCH 27 L (28-32) pg RDW 16.5 H (13.2-15.2) % Monocytes % (Manual) 13.0 H (0.0-7.3) % Eosinophils % (Manual) 6.0 H (0.0-4.3) % Seg Neutrophils # Man 0.0 L (1.8-7.7) K/mm3 Lymphocytes # (Manual) 0.0 L (1.2-5.4) K/mm3 POC ABG pCO2 (35-45) POC ABG pO2 (80-105) BUN 6 L (7-17) mg/dL Glucose 132 H (65-100) mg/dL Total Creatine Kinase 254 H (30-135) units/L Albumin 3.8 L (3.9-5) g/dL Influenza A (Rapid) (Negative) 02/07/18 02/07/18 Range/Units 12:19 Unknown MCH (28-32) pg RDW (13.2-15.2) % Monocytes % (Manual) (0.0-7.3) % Eosinophils % (Manual) (0.0-4.3) % Seg Neutrophils # Man (1.8-7.7) K/mm3 Lymphocytes # (Manual) (1.2-5.4) K/mm3 POC ABG pCO2 32.2 L (35-45) POC ABG pO2 71 L (80-105) BUN (7-17) mg/dL Glucose (65-100) mg/dL Total Creatine Kinase (30-135) units/L Albumin (3.9-5) g/dL Influenza A (Rapid) Positive A (Negative) Assessment and Plan - Patient Problems (1) COPD with exacerbation Current Visit: Yes Status: Acute Plan to address problem: Supplemental oxygen, nebulizer therapy, IV steroid therapy in ED, chext x ray, NIPPV as clinically indicated, (2) Respiratory failure Current Visit: Yes Status: Acute Qualifiers: Chronicity: acute Respiratory failure complication: hypoxia Qualified Code(s): J96.01 - Acute respiratory failure with hypoxia Plan to address problem: ABG, BNP, chest x ray, supplemental oxygen, nebulizer therapy, NIPPV as clinically indicated (3) Influenza Current Visit: Yes Status: Acute Plan to address problem: Tamiflu, droplet precautions, (4) DVT prophylaxis Current Visit: Yes Status: Acute Plan to address problem: SCD to BLE while in bed.
[2018-02-07] MEDS ORDERED: PROVENTIL IH PRN (13:45)
[2018-02-07] MEDS ORDERED: ZOFRAN IV PRN (13:45)
[2018-02-07] MEDS ORDERED: SODIUM CHLORIDE FLUSH SYRINGE 10 ML IV PRN (13:45)
[2018-02-07] MEDS ORDERED: TYLENOL PO PRN (13:45)
[2018-02-07] MEDS: PULMICORT IH SCH (19:28)
[2018-02-07] MEDS: DUONEB *Not for PRN Use IH SCH (19:28)
[2018-02-07] MEDS ORDERED: PEPCID PO SCH (22:00)
[2018-02-07] MEDS ORDERED: POTASSIUM CITRATE 10 MEQ PO SCH (22:00)
[2018-02-07] MEDS ORDERED: NON-FORMULARY (Mometasone Furoate [Nasonex] 2 SPRAY) NS SCH (22:00)
[2018-02-07] MEDS: BUSPAR PO SCH (22:23)
[2018-02-07] MEDS: SODIUM BICARBONATE PO SCH (22:24)
[2018-02-07] MEDS: LANTUS SUB-Q SCH (23:39)
[2018-02-07] MEDS: HumaLOG SUB-Q SCH (23:39)
[2018-02-07] MEDS: TAMIFLU PO SCH (23:39)
[2018-02-07] MEDS: SODIUM CHLORIDE FLUSH SYRINGE 10 ML IV SCH (23:39)
[2018-02-08] MEDS: DUONEB *Not for PRN Use IH SCH ×4 (01:04→21:07)
[2018-02-08] MEDS ORDERED: MOTRIN PO SCH (06:23)
[2018-02-08] MEDS ORDERED: MOTRIN PO ONE (06:47)
[2018-02-08 07:37] LABS: Basophils % (Auto) 0.4 % (0.0-1.8); Hematocrit 35.4 % (30.3-42.9); Hemoglobin 11.5 gm/dl (10.1-14.3); Lymphocytes # (Auto) 1.4 K/mm3 (1.2-5.4); Lymphocytes % (Auto) 21.1 % (13.4-35.0); Mean Corpuscular HGB Conc 32 % (30-34); Mean Corpuscular Hemoglobin 26 pg (28-32); Mean Corpuscular Volume 80 fl (79-97); Monocytes # (Auto) 0.7 K/mm3 (0.0-0.8); Monocytes % (Auto) 10.3 % (0.0-7.3); Platelet Count 390 K/mm3 (140-440); Red Blood Count 4.41 M/mm3 (3.65-5.03); Red Cell Distribution Width 16.4 % (13.2-15.2)
[2018-02-08] MEDS: PULMICORT IH SCH ×2 (08:20→21:07)
[2018-02-08] MEDS: SODIUM BICARBONATE PO SCH ×2 (09:28→22:54)
[2018-02-08] MEDS: ALDACTONE PO SCH (09:28)
[2018-02-08] MEDS: ZESTRIL PO SCH (09:28)
[2018-02-08] MEDS: K-DUR PO SCH ×2 (09:28→22:55)
[2018-02-08] MEDS: NORVASC PO SCH (09:29)
[2018-02-08] MEDS: OYSCO D 500 MG-200 UNIT PO SCH (09:29)
[2018-02-08] MEDS: BUSPAR PO SCH ×2 (09:29→22:56)
[2018-02-08] MEDS: PROTONIX PO SCH (09:29)
[2018-02-08] MEDS: ASPIRIN PO SCH (09:30)
[2018-02-08] MEDS: MAG-OX PO SCH (09:30)
[2018-02-08] MEDS: VITAMIN D3 PO SCH (09:30)
[2018-02-08] MEDS: TAMIFLU PO SCH ×2 (09:31→22:54)
[2018-02-08] MEDS: TRICOR PO SCH (09:31)
[2018-02-08] MEDS: SODIUM CHLORIDE FLUSH SYRINGE 10 ML IV SCH ×2 (09:32→22:54)
[2018-02-08] MEDS: FLONASE NS SCH (09:32)
[2018-02-08] MEDS: HumaLOG SUB-Q SCH ×4 (09:35→22:56)
[2018-02-08] MEDS ORDERED: VITAMIN D3 PO SCH (10:00)
[2018-02-08] MEDS ORDERED: NON-FORMULARY (Dexlansoprazole [Dexilant] 60 MG) PO SCH (10:00)
[2018-02-08] MEDS ORDERED: CALCIUM CARBONATE PO SCH (10:00)
[2018-02-08] MEDS ORDERED: ZITHROMAX 500 MG in NACL 0.9% 250ML 250 ML IV SCH (10:00)
[2018-02-08] MEDS ORDERED: MAGNESIUM 400 MG PO SCH (10:00)
[2018-02-08] MEDS ORDERED: INSULIN DETEMIR 100 UNIT SQ SCH (10:00)
[2018-02-08] MEDS ORDERED: FENOFIBRATE MICRONIZED PO SCH (10:00)
[2018-02-08 16:25] LABS: BUN/Creatinine Ratio 11; Blood Urea Nitrogen 8 mg/dL (7-17); Calcium 9.4 mg/dL (8.4-10.2); Hemolysis Index 7
[2018-02-08] MEDS: PERCOCET 5/325 PO PRN (16:39)
--- NOTE | 2018-02-08 19:45 | Progress Note ---
Assessment and Plan Assessment and Plan - Patient Problems (1) COPD with exacerbation Current Visit: Yes Status: Acute Plan to address problem: Supplemental oxygen, nebulizer therapy, IV steroid therapy in ED, chext x ray, NIPPV as clinically indicated, (2) Respiratory failure Current Visit: Yes Status: Acute Qualifiers: Chronicity: acute Respiratory failure complication: hypoxia Qualified Code(s): J96.01 - Acute respiratory failure with hypoxia Plan to address problem: ABG, BNP, chest x ray, supplemental oxygen, nebulizer therapy, NIPPV as clinically indicated (3) Influenza Current Visit: Yes Status: Acute Plan to address problem: Tamiflu, droplet precautions, (4) DVT prophylaxis Current Visit: Yes Status: Acute Plan to address problem: SCD to BLE while in bed. Subjective Date of service: 02/08/18 Principal diagnosis: 02/08/2018 Interval history: Still wheezing a lot Objective - Constitutional Vitals: Vital Signs - 12hr 02/08/18 02/08/18 02/08/18 08:21 08:39 11:43 Temperature 97.9 F Pulse Rate 90 Pulse Rate [ 81 94 H Anterior Bilateral Throughout] Respiratory 20 Rate Respiratory 16 18 Rate [Anterior Bilateral Throughout] Blood Pressure 147/62 O2 Sat by Pulse 97 99 Oximetry 02/08/18 02/08/18 02/08/18 13:39 13:48 17:04 Temperature 97.8 F Pulse Rate 89 Pulse Rate [ 89 94 H Anterior Bilateral Throughout] Respiratory 20 Rate Respiratory 18 18 Rate [Anterior Bilateral Throughout] Blood Pressure 134/110 O2 Sat by Pulse 95 Oximetry General appearance: Present: no acute distress, well-nourished - EENT Eyes: PERRL, EOM intact ENT: hearing intact, clear oral mucosa Ears: bilateral: normal - Neck Neck: supple, normal ROM - Respiratory Respiratory effort: normal Respiratory: bilateral: CTA, rhonchi, wheezing - Breasts Breasts: normal - Cardiovascular Heart rate: 76 Rhythm: regular Heart Sounds: Present: S1 & S2. Absent: gallop, rub Extremities: pulses intact, No edema, normal color, Full ROM - Gastrointestinal General gastrointestinal: Present: soft, non-tender, non-distended, normal bowel sounds - Genitourinary Female genitourinary: normal - Integumentary Integumentary: clear, warm, dry - Musculoskeletal Musculoskeletal: 1, strength equal bilaterally - Neurologic Neurologic: moves all extremities - Psychiatric Psychiatric: memory intact, appropriate mood/affect, intact judgment & insight - Labs CBC & Chem 7: 02/08/18 07:04 02/08/18 15:46 Labs: Abnormal lab results 02/07/18 02/08/18 02/08/18 Range/Units 21:34 07:04 07:48 MCH 26 L (28-32) pg RDW 16.4 H (13.2-15.2) % [place] % (Auto) 10.3 H (0.0-7.3) % Glucose (65-100) mg/dL POC Glucose 294 H 256 H (70-105) 02/08/18 02/08/18 02/08/18 Range/Units 11:12 15:46 16:14 MCH (28-32) pg RDW (13.2-15.2) % [place] % (Auto) (0.0-7.3) % Glucose 176 H (65-100) mg/dL POC Glucose 227 H 175 H (70-105)
[2018-02-08] MEDS ORDERED: FLEXERIL PO ONE (21:49)
[2018-02-08] MEDS ORDERED: BENADRYL PO ONE (21:50)
[2018-02-08] MEDS: LANTUS SUB-Q SCH (22:56)
[2018-02-09] MEDS: DUONEB *Not for PRN Use IH SCH ×4 (02:17→21:59)
[2018-02-09] MEDS: PULMICORT IH SCH ×2 (08:03→21:59)
[2018-02-09] MEDS: PERCOCET 5/325 PO PRN ×2 (08:19→23:36)
[2018-02-09] MEDS: HumaLOG SUB-Q SCH ×4 (08:31→22:55)
[2018-02-09] MEDS: VITAMIN D3 PO SCH (09:35)
[2018-02-09] MEDS: ZITHROMAX PO SCH (09:36)
[2018-02-09] MEDS: MAG-OX PO SCH (09:36)
[2018-02-09] MEDS: ALDACTONE PO SCH (09:36)
[2018-02-09] MEDS: BUSPAR PO SCH ×2 (09:36→22:54)
[2018-02-09] MEDS: K-DUR PO SCH ×2 (09:36→22:55)
[2018-02-09] MEDS: PROTONIX PO SCH (09:37)
[2018-02-09] MEDS: SODIUM CHLORIDE FLUSH SYRINGE 10 ML IV SCH ×2 (09:37→22:57)
[2018-02-09] MEDS: ZESTRIL PO SCH (09:37)
[2018-02-09] MEDS: NORVASC PO SCH (09:37)
[2018-02-09] MEDS: OYSCO D 500 MG-200 UNIT PO SCH (09:37)
[2018-02-09] MEDS: TRICOR PO SCH (09:37)
[2018-02-09] MEDS: TAMIFLU PO SCH ×2 (09:37→22:57)
[2018-02-09] MEDS: ASPIRIN PO SCH (09:38)
[2018-02-09] MEDS: FLONASE NS SCH (09:38)
[2018-02-09] MEDS: SODIUM BICARBONATE PO SCH ×2 (09:43→22:55)
--- NOTE | 2018-02-09 18:59 | Progress Note ---
Assessment and Plan Assessment and Plan - Patient Problems (1) COPD with exacerbation Current Visit: Yes Status: Acute Plan to address problem: Supplemental oxygen, nebulizer therapy, IV steroid therapy in ED, chext x ray, NIPPV as clinically indicated, Possible discharge tomorrow (2) Respiratory failure Current Visit: Yes Status: Acute Qualifiers: Chronicity: acute Respiratory failure complication: hypoxia Qualified Code(s): J96.01 - Acute respiratory failure with hypoxia Plan to address problem: ABG, BNP, chest x ray, supplemental oxygen, nebulizer therapy, NIPPV as clinically indicated (3) Influenza Current Visit: Yes Status: Acute Plan to address problem: Tamiflu, droplet precautions, (4) DVT prophylaxis Current Visit: Yes Status: Acute Plan to address problem: SCD to BLE while in bed. Subjective Date of service: 02/09/18 Principal diagnosis: 02/10/2080 Interval history: Still wheezing a lot Objective - Constitutional Vitals: Vital Signs - 12hr 02/09/18 02/09/18 02/09/18 08:03 08:13 11:38 Temperature 97.8 F Pulse Rate 74 Pulse Rate [ 68 71 Anterior Bilateral Throughout] Pulse Rate [ Posterior Bilateral Throughout] Respiratory 16 Rate Respiratory 20 20 Rate [Anterior Bilateral Throughout] Respiratory Rate [Posterior Bilateral Throughout] Blood Pressure 125/62 O2 Sat by Pulse 97 97 Oximetry 02/09/18 02/09/18 02/09/18 15:23 15:35 16:52 Temperature 98.1 F Pulse Rate 79 Pulse Rate [ Anterior Bilateral Throughout] Pulse Rate [ 81 85 Posterior Bilateral Throughout] Respiratory 18 Rate Respiratory Rate [Anterior Bilateral Throughout] Respiratory 18 20 Rate [Posterior Bilateral Throughout] Blood Pressure 133/71 O2 Sat by Pulse 95 Oximetry General appearance: Present: no acute distress, well-nourished - EENT Eyes: PERRL, EOM intact ENT: hearing intact, clear oral mucosa Ears: bilateral: normal - Neck Neck: supple, normal ROM - Respiratory Respiratory effort: normal Respiratory: bilateral: CTA, rhonchi, wheezing - Breasts Breasts: normal - Cardiovascular Rhythm: regular Heart Sounds: Present: S1 & S2. Absent: gallop, rub Extremities: pulses intact, No edema, normal color, Full ROM - Gastrointestinal General gastrointestinal: Present: soft, non-tender, non-distended, normal bowel sounds - Genitourinary Female genitourinary: normal - Integumentary Integumentary: clear, warm, dry - Musculoskeletal Musculoskeletal: 1, strength equal bilaterally - Neurologic Neurologic: moves all extremities - Psychiatric Psychiatric: memory intact, appropriate mood/affect, intact judgment & insight - Labs CBC & Chem 7: 02/08/18 07:04 02/08/18 15:46 Labs: Abnormal lab results 02/08/18 02/09/18 02/09/18 Range/Units 21:49 07:38 11:06 POC Glucose 145 H 121 H 177 H (70-105) 02/09/18 Range/Units 16:30 POC Glucose 158 H (70-105)
[2018-02-09] MEDS: LANTUS SUB-Q SCH (22:55)
[2018-02-10] MEDS: DUONEB *Not for PRN Use IH SCH ×4 (03:41→20:17)
[2018-02-10] MEDS: PERCOCET 5/325 PO PRN ×2 (07:38→23:01)
[2018-02-10] MEDS: PULMICORT IH SCH ×2 (07:49→20:17)
[2018-02-10] MEDS: HumaLOG SUB-Q SCH ×4 (08:22→23:03)
[2018-02-10] MEDS: TRICOR PO SCH (09:23)
[2018-02-10] MEDS: TAMIFLU PO SCH ×2 (09:23→23:01)
[2018-02-10] MEDS: BUSPAR PO SCH ×2 (09:23→23:01)
[2018-02-10] MEDS: TESSALON PERLES PO SCH ×2 (09:23→14:03)
[2018-02-10] MEDS: OYSCO D 500 MG-200 UNIT PO SCH (09:24)
[2018-02-10] MEDS: MAG-OX PO SCH (09:24)
[2018-02-10] MEDS: VITAMIN D3 PO SCH (09:24)
[2018-02-10] MEDS: K-DUR PO SCH ×2 (09:24→23:01)
[2018-02-10] MEDS: ASPIRIN PO SCH (09:24)
[2018-02-10] MEDS: SODIUM BICARBONATE PO SCH ×2 (09:24→23:01)
[2018-02-10] MEDS: PROTONIX PO SCH (09:25)
[2018-02-10] MEDS: NORVASC PO SCH (09:25)
[2018-02-10] MEDS: ALDACTONE PO SCH (09:25)
[2018-02-10] MEDS: ZITHROMAX PO SCH (09:25)
[2018-02-10] MEDS: ZESTRIL PO SCH (09:25)
[2018-02-10] MEDS: SODIUM CHLORIDE FLUSH SYRINGE 10 ML IV SCH ×2 (12:50→23:03)
[2018-02-10] MEDS: FLONASE NS SCH (12:50)
--- NOTE | 2018-02-10 15:49 | Progress Note ---
Assessment and Plan Assessment and Plan - Patient Problems (1) COPD with exacerbation Current Visit: Yes Status: Acute Plan to address problem: Supplemental oxygen, nebulizer therapy, IV steroid therapy in ED, chext x ray, NIPPV as clinically indicated, (2) Respiratory failure Current Visit: Yes Status: Acute Qualifiers: Chronicity: acute Respiratory failure complication: hypoxia Qualified Code(s): J96.01 - Acute respiratory failure with hypoxia Plan to address problem: ABG, BNP, chest x ray, supplemental oxygen, nebulizer therapy, NIPPV as clinically indicated (3) Influenza Current Visit: Yes Status: Acute Plan to address problem: Tamiflu, droplet precautions, (4) DVT prophylaxis Current Visit: Yes Status: Acute Plan to address problem: SCD to BLE while in bed. Subjective Date of service: 02/10/18 Principal diagnosis: acute respiratory failure and COPD exacerbation Interval history: Still wheezing a lot Objective - Constitutional Vitals: Vital Signs - 12hr 02/10/18 02/10/18 02/10/18 03:49 04:43 07:49 Temperature 98.3 F Pulse Rate 69 Pulse Rate [ 75 Anterior Bilateral Throughout] Pulse Rate [ 69 Posterior Bilateral Throughout] Respiratory 20 Rate Respiratory 18 Rate [Anterior Bilateral Throughout] Respiratory 18 Rate [Posterior Bilateral Throughout] Blood Pressure 139/64 O2 Sat by Pulse 96 Oximetry 02/10/18 02/10/18 02/10/18 07:50 08:15 11:23 Temperature 98.1 F Pulse Rate 66 Pulse Rate [ 70 Anterior Bilateral Throughout] Pulse Rate [ Posterior Bilateral Throughout] Respiratory 20 Rate Respiratory 18 Rate [Anterior Bilateral Throughout] Respiratory Rate [Posterior Bilateral Throughout] Blood Pressure 128/62 O2 Sat by Pulse 96 96 Oximetry 02/10/18 02/10/18 14:37 14:47 Temperature Pulse Rate Pulse Rate [ 75 85 Anterior Bilateral Throughout] Pulse Rate [ Posterior Bilateral Throughout] Respiratory Rate Respiratory 20 20 Rate [Anterior Bilateral Throughout] Respiratory Rate [Posterior Bilateral Throughout] Blood Pressure O2 Sat by Pulse Oximetry General appearance: Present: no acute distress, well-nourished - EENT Eyes: PERRL, EOM intact ENT: hearing intact, clear oral mucosa Ears: bilateral: normal - Neck Neck: supple, normal ROM - Respiratory Respiratory effort: normal Respiratory: bilateral: CTA, rhonchi, wheezing - Breasts Breasts: normal - Cardiovascular Heart rate: 78 Rhythm: regular Heart Sounds: Present: S1 & S2. Absent: gallop, rub Extremities: pulses intact, No edema, normal color, Full ROM - Gastrointestinal General gastrointestinal: Present: soft, non-tender, non-distended, normal bowel sounds - Genitourinary Female genitourinary: normal - Integumentary Integumentary: clear, warm, dry - Musculoskeletal Musculoskeletal: 1, strength equal bilaterally - Neurologic Neurologic: moves all extremities - Psychiatric Psychiatric: memory intact, appropriate mood/affect, intact judgment & insight - Labs CBC & Chem 7: 02/08/18 07:04 02/08/18 15:46 Labs: Abnormal lab results 02/09/18 02/09/18 02/10/18 Range/Units 16:30 20:45 11:28 POC Glucose 158 H 155 H 181 H (70-105)
[2018-02-10] MEDS: HYDROMET PO PRN (19:25)
[2018-02-10] MEDS ORDERED: RESTORIL PO ONE (22:00)
[2018-02-10] MEDS: LANTUS SUB-Q SCH (23:02)
[2018-02-11] MEDS: DUONEB *Not for PRN Use IH SCH ×4 (03:19→20:11)
[2018-02-11] MEDS: PULMICORT IH SCH ×2 (08:16→20:11)
[2018-02-11] MEDS: HumaLOG SUB-Q SCH ×4 (08:29→22:15)
[2018-02-11] MEDS: SODIUM CHLORIDE FLUSH SYRINGE 10 ML IV SCH ×2 (10:00→22:04)
[2018-02-11] MEDS: FLONASE NS SCH (10:00)
[2018-02-11] MEDS: VITAMIN D3 PO SCH (10:21)
[2018-02-11] MEDS: TAMIFLU PO SCH ×2 (10:21→22:04)
[2018-02-11] MEDS: ASPIRIN PO SCH (10:21)
[2018-02-11] MEDS: ALDACTONE PO SCH (10:21)
[2018-02-11] MEDS: TRICOR PO SCH (10:21)
[2018-02-11] MEDS: K-DUR PO SCH ×2 (10:21→22:04)
[2018-02-11] MEDS: MAG-OX PO SCH (10:22)
[2018-02-11] MEDS: NORVASC PO SCH (10:22)
[2018-02-11] MEDS: SODIUM BICARBONATE PO SCH ×2 (10:22→22:03)
[2018-02-11] MEDS: OYSCO D 500 MG-200 UNIT PO SCH (10:23)
[2018-02-11] MEDS: ZITHROMAX PO SCH (10:23)
[2018-02-11] MEDS: ZESTRIL PO SCH (10:23)
[2018-02-11] MEDS: PROTONIX PO SCH (10:24)
[2018-02-11] MEDS: BUSPAR PO SCH ×2 (11:03→22:03)
[2018-02-11] MEDS: HYDROMET PO PRN ×2 (11:03→22:02)
[2018-02-11] MEDS: PERCOCET 5/325 PO PRN ×2 (12:48→22:03)
--- NOTE | 2018-02-11 17:22 | Progress Note ---
Assessment and Plan Assessment and Plan - Patient Problems (1) COPD with exacerbation Current Visit: Yes Status: Acute Plan to address problem: Supplemental oxygen, nebulizer therapy, IV steroid therapy in ED, chext x ray, NIPPV as clinically indicated, Patient reluctant to go home today Possible discharge tomorrow (2) Respiratory failure Current Visit: Yes Status: Acute Qualifiers: Chronicity: acute Respiratory failure complication: hypoxia Qualified Code(s): J96.01 - Acute respiratory failure with hypoxia Plan to address problem: ABG, BNP, chest x ray, supplemental oxygen, nebulizer therapy, NIPPV as clinically indicated (3) Influenza Current Visit: Yes Status: Acute Plan to address problem: Tamiflu, droplet precautions, (4) DVT prophylaxis Current Visit: Yes Status: Acute Plan to address problem: SCD to BLE while in bed. Subjective Date of service: 02/11/18 Principal diagnosis: 02/10/2080 Interval history: Still wheezing a lot Objective - Constitutional Vitals: Vital Signs - 12hr 02/11/18 02/11/18 02/11/18 05:49 08:16 08:26 Temperature 98.5 F Pulse Rate 71 Pulse Rate [ 83 77 Anterior Bilateral Throughout] Respiratory 20 Rate Respiratory 20 20 Rate [Anterior Bilateral Throughout] Blood Pressure 134/75 O2 Sat by Pulse 99 100 Oximetry 02/11/18 02/11/18 02/11/18 10:22 10:23 11:42 Temperature 98.5 F Pulse Rate 501 H 80 68 Pulse Rate [ Anterior Bilateral Throughout] Respiratory 22 Rate Respiratory Rate [Anterior Bilateral Throughout] Blood Pressure 118/65 O2 Sat by Pulse 96 Oximetry 02/11/18 02/11/18 13:23 13:33 Temperature Pulse Rate Pulse Rate [ 79 77 Anterior Bilateral Throughout] Respiratory Rate Respiratory 20 20 Rate [Anterior Bilateral Throughout] Blood Pressure O2 Sat by Pulse Oximetry General appearance: Present: mild distress, well-nourished - EENT Eyes: PERRL, EOM intact ENT: hearing intact, clear oral mucosa Ears: bilateral: normal - Neck Neck: supple, normal ROM - Respiratory Respiratory effort: normal Respiratory: bilateral: rhonchi, wheezing - Breasts Breasts: normal - Cardiovascular Rhythm: regular Heart Sounds: Present: S1 & S2. Absent: gallop, rub Extremities: pulses intact, No edema, normal color, Full ROM - Gastrointestinal General gastrointestinal: Present: soft, non-tender, non-distended, normal bowel sounds - Genitourinary Female genitourinary: normal - Integumentary Integumentary: clear, warm, dry - Musculoskeletal Musculoskeletal: 1, strength equal bilaterally - Neurologic Neurologic: moves all extremities - Psychiatric Psychiatric: memory intact, appropriate mood/affect, intact judgment & insight - Labs CBC & Chem 7: 02/08/18 07:04 02/08/18 15:46 Labs: Abnormal lab results 02/10/18 02/10/18 02/11/18 Range/Units 16:43 21:45 11:47 POC Glucose 114 H 149 H 157 H (70-105) 02/11/18 Range/Units 16:09 POC Glucose 152 H (70-105)
[2018-02-11] MEDS: LANTUS SUB-Q SCH (22:15)
[2018-02-12] VITALS: BP 132/68
[2018-02-12] MEDS: DUONEB *Not for PRN Use IH SCH ×3 (01:37→13:12)
[2018-02-12 06:10] LABS: Basophils # (Auto) 0.2 K/mm3 (0.0-0.1); Eosinophils # (Auto) 0.2 K/mm3 (0.0-0.4); Eosinophils % (Auto) 3.3 % (0.0-4.3); Hematocrit 39.6 % (30.3-42.9); Hemoglobin 12.8 gm/dl (10.1-14.3); Lymphocytes # (Auto) 2.7 K/mm3 (1.2-5.4); Mean Corpuscular HGB Conc 33 % (30-34); Mean Corpuscular Volume 80 fl (79-97); Monocytes # (Auto) 0.5 K/mm3 (0.0-0.8); Monocytes % (Auto) 6.3 % (0.0-7.3); Red Blood Count 4.95 M/mm3 (3.65-5.03); Red Cell Distribution Width 16.1 % (13.2-15.2)
[2018-02-12 06:34] LABS: BUN/Creatinine Ratio 11; Blood Urea Nitrogen 9 mg/dL (7-17); Calcium 9.3 mg/dL (8.4-10.2); Hemolysis Index 53
[2018-02-12 06:37] LABS: Mean Corpuscular Hemoglobin 26 pg (28-32); Platelet Count 446 K/mm3 (140-440)
[2018-02-12] MEDS: HumaLOG SUB-Q SCH ×2 (07:30→11:30)
[2018-02-12] MEDS: PULMICORT IH SCH (07:58)
[2018-02-12] MEDS: BUSPAR PO SCH (10:13)
[2018-02-12] MEDS: ASPIRIN PO SCH (10:13)
[2018-02-12] MEDS: MAG-OX PO SCH (10:13)
[2018-02-12] MEDS: SODIUM BICARBONATE PO SCH (10:13)
[2018-02-12] MEDS: VITAMIN D3 PO SCH (10:14)
[2018-02-12] MEDS: TRICOR PO SCH (10:14)
[2018-02-12] MEDS: ZESTRIL PO SCH (10:14)
[2018-02-12] MEDS: TAMIFLU PO SCH (10:14)
[2018-02-12] MEDS: K-DUR PO SCH (10:15)
[2018-02-12] MEDS: PROTONIX PO SCH (10:15)
[2018-02-12] MEDS: NORVASC PO SCH (10:15)
[2018-02-12] MEDS: ALDACTONE PO SCH (10:15)
[2018-02-12] MEDS: OYSCO D 500 MG-200 UNIT PO SCH (10:15)
[2018-02-12] MEDS: ZITHROMAX PO SCH (10:15)
[2018-02-12] MEDS: FLONASE NS SCH (10:16)
[2018-02-12] MEDS: PERCOCET 5/325 PO PRN (10:22)
--- NOTE | 2018-02-12 15:41 | Discharge Summary ---
Providers - Providers Date of Admission: 02/07/18 13:45 Date of discharge: 02/12/18 Attending physician: PAUL DUARTE Primary care physician: [place] MAYS Hospitalization Condition: Stable Hospital course: Assessment and Plan - Patient Problems (1) COPD with exacerbation Current Visit: Yes Status: Acute Plan to address problem: D/c on Po Levaquin and prednisone for 5 days (2) Respiratory failure Current Visit: Yes Status: Acute Qualifiers: Chronicity: acute Respiratory failure complication: hypoxia Qualified Code(s): J96.01 - Acute respiratory failure with hypoxia Plan to address problem: Improved (3) Influenza Current Visit: Yes Status: Acute Plan to address problem: Improved Disposition: - TO HOME OR SELFCARE Core Measure Documentation - Palliative Care Palliative Care/ Comfort Measures: Not Applicable - Core Measures Any of the following diagnoses?: none Exam - Constitutional Vitals: Temp Pulse Resp BP Pulse Ox 98.3 F 82 20 132/68 96 02/11/18 23:31 02/12/18 13:22 02/12/18 13:22 02/11/18 23:31 02/11/18 23:31 General appearance: Present: no acute distress, well-nourished - EENT Eyes: Present: PERRL ENT: hearing intact, clear oral mucosa - Neck Neck: Present: supple, normal ROM - Respiratory Respiratory effort: normal Respiratory: bilateral: CTA - Cardiovascular Heart rate: 78 Rhythm: regular Heart Sounds: Present: S1 & S2. Absent: rub, click - Extremities Extremities: no ischemia, pulses intact, pulses symmetrical, No edema Peripheral Pulses: within normal limits - Abdominal General gastrointestinal: Present: soft, non-tender, non-distended, normal bowel sounds Female genitourinary: Present: normal - Rectal Rectal Exam: deferred - Integumentary Integumentary: Present: clear, warm, dry - Musculoskeletal Musculoskeletal: gait normal, strength equal bilaterally - Psychiatric Psychiatric: appropriate mood/affect, intact judgment & insight - Neurologic Neurologic: CNII-XII intact, moves all extremities - Allied Health Allied health notes reviewed: nursing, case management Plan Activity: no restrictions Diet: regular Follow up with: PRIMARY CARE,MD [Referring] - 3-5 Days
== END 2018-02-12 17:18 | disposition home or self-care (01) | DRG 189 ==
LOC: ED 09:31 → 3A 13:45
PROVIDERS: ADMIT Internal Medicine; ATTEND Internal Medicine
PROC: 4A033R1 Measurement of Arterial Saturation, Peripheral, Percutaneous Approach (ICD-10-PCS; principal; 2018-02-07)
DX: J96.01 Acute respiratory failure with hypoxia (principal); J44.1 Chronic obstructive pulmonary disease with (acute) exacerbation; J45.901 Unspecified asthma with (acute) exacerbation; J11.1 Influenza due to unidentified influenza virus with other respiratory manifestations; I10 Essential (primary) hypertension; E11.9 Type 2 diabetes mellitus without complications; K21.9 Gastro-esophageal reflux disease without esophagitis; M19.90 Unspecified osteoarthritis, unspecified site; J44.9 Chronic obstructive pulmonary disease, unspecified; Z96.643 Presence of artificial hip joint, bilateral; Z96.612 Presence of left artificial shoulder joint; Z96.611 Presence of right artificial shoulder joint; Z87.891 Personal history of nicotine dependence; Z90.710 Acquired absence of both cervix and uterus; I25.2 Old myocardial infarction
CPT/HCPCS: 36415; 71046; 80048; 80053; 82550; 82553; 82803; 82962; 83735; 83880; 84484; 85007; 85025; 87116; 87400; 93005; 93010; 94640; 94644; 94760; G0378; A9270-GY; J0456; J1815; J2405; J2930; J3475; J7050

== ENCOUNTER 2018-03-06 09:52 | Outpatient (CLI) | payer MEDICARE ==
[2018-03-06 10:26] LABS: Hematocrit 34.1 % (30.3-42.9); Hemoglobin 10.9 gm/dl (10.1-14.3); Mean Corpuscular HGB Conc 32 % (30-34); Mean Corpuscular Volume 81 fl (79-97); Platelet Count 377 K/mm3 (140-440); Red Blood Count 4.23 M/mm3 (3.65-5.03); Red Cell Distribution Width 17.1 % (13.2-15.2)
[2018-03-06 10:53] LABS: Alanine Aminotransferase 8 units/L (7-56); Albumin 3.7 g/dL (3.9-5); BUN/Creatinine Ratio 10; Blood Urea Nitrogen 7 mg/dL (7-17); Calcium 9.2 mg/dL (8.4-10.2); Hemolysis Index 4; LDL Cholesterol,Direct 171 mg/dL (50-130)
[2018-03-06 11:22] LABS: Chol/HDL Ratio 3.66 %; HDL Cholesterol 60 mg/dL (40-59)
[2018-03-06 12:07] LABS: Anisocytosis 1+; Basophils % (Manual) 0 % (0.0-1.8); Macrocytosis Few; Ovalocytes Few; Platelet Estimate Consistent w Auto; Total Cells Counted 100
== END 2018-03-06 09:53 | disposition home or self-care (01) ==
LOC: LAB 09:52
DX: E11.42 Type 2 diabetes mellitus with diabetic polyneuropathy (principal); I10 Essential (primary) hypertension; E78.2 Mixed hyperlipidemia; J44.9 Chronic obstructive pulmonary disease, unspecified; M19.90 Unspecified osteoarthritis, unspecified site; E78.00 Pure hypercholesterolemia, unspecified; K21.9 Gastro-esophageal reflux disease without esophagitis; Z90.710 Acquired absence of both cervix and uterus; Z79.899 Other long term (current) drug therapy; Z90.89 Acquired absence of other organs; Z87.891 Personal history of nicotine dependence
CPT/HCPCS: 36415; 80053; 80061; 83036; 85007; 85025

== ENCOUNTER 2018-04-24 10:52 | Outpatient (CLI) | payer MEDICARE ==
[2018-04-24 11:11] LABS: Hematocrit 39.3 % (30.3-42.9); Hemoglobin 12.6 gm/dl (10.1-14.3); Mean Corpuscular HGB Conc 32 % (30-34); Mean Corpuscular Volume 82 fl (79-97); Platelet Count 417 K/mm3 (140-440); Red Blood Count 4.81 M/mm3 (3.65-5.03); Red Cell Distribution Width 16.5 % (13.2-15.2)
[2018-04-24 11:39] LABS: Alanine Aminotransferase 7 units/L (7-56); Albumin 4.4 g/dL (3.9-5); BUN/Creatinine Ratio 14; Blood Urea Nitrogen 10 mg/dL (7-17); Calcium 9.4 mg/dL (8.4-10.2); Hemolysis Index 4
[2018-04-24 12:23] LABS: Basophils % (Manual) 0 % (0.0-1.8); Total Cells Counted 100
[2018-04-24 12:24] LABS: Anisocytosis 1+; Ovalocytes Few; Platelet Estimate Consistent w Auto
[2018-04-24 13:22] LABS: Creatinine,Urine 40.7 mg/dL (0.1-20.0)
== END 2018-04-24 10:53 | disposition home or self-care (01) ==
LOC: LAB 10:52
PROVIDERS: ATTEND Internal Medicine
DX: I10 Essential (primary) hypertension (principal); E11.9 Type 2 diabetes mellitus without complications; K50.90 Crohn's disease, unspecified, without complications; E26.9 Hyperaldosteronism, unspecified; E87.2 Acidosis; E83.42 Hypomagnesemia; E87.1 Hypo-osmolality and hyponatremia
CPT/HCPCS: 36415; 80053; 82570; 84156; 85007; 85025

== ENCOUNTER 2018-08-07 08:49 | Outpatient (CLI) | payer MEDICARE ==
[2018-08-07 09:53] LABS: Hematocrit 36.2 % (30.3-42.9); Hemoglobin 11.7 gm/dl (10.1-14.3); Mean Corpuscular HGB Conc 32 % (30-34); Mean Corpuscular Volume 84 fl (79-97); Platelet Count 407 K/mm3 (140-440); Red Blood Count 4.31 M/mm3 (3.65-5.03); Red Cell Distribution Width 16.2 % (13.2-15.2)
[2018-08-07 10:08] LABS: Alanine Aminotransferase 9 units/L (7-56); Albumin 4.2 g/dL (3.9-5); BUN/Creatinine Ratio 13; Blood Urea Nitrogen 12 mg/dL (7-17); Calcium 9.7 mg/dL (8.4-10.2); Hemolysis Index 8
[2018-08-07 10:49] LABS: Band Neutrophils # (Manual) 0.1 K/mm3; Total Cells Counted 100
[2018-08-07 10:50] LABS: Platelet Estimate Consistent w Auto; RBC Morphology Normal
== END 2018-08-07 08:50 | disposition home or self-care (01) ==
LOC: LAB 08:49
PROVIDERS: ATTEND Internal Medicine
DX: I10 Essential (primary) hypertension (principal); E78.2 Mixed hyperlipidemia; E83.42 Hypomagnesemia; E11.9 Type 2 diabetes mellitus without complications; K50.90 Crohn's disease, unspecified, without complications; E87.1 Hypo-osmolality and hyponatremia; E26.9 Hyperaldosteronism, unspecified; J44.9 Chronic obstructive pulmonary disease, unspecified; K21.9 Gastro-esophageal reflux disease without esophagitis; Z90.710 Acquired absence of both cervix and uterus
CPT/HCPCS: 36415; 80053; 84156; 85007; 85025

== ENCOUNTER 2018-08-31 09:34 | Outpatient (CLI) | payer MEDICARE ==
[2018-08-31 10:20] LABS: Hematocrit 36.7 % (30.3-42.9); Hemoglobin 12.1 gm/dl (10.1-14.3); Mean Corpuscular HGB Conc 33 % (30-34); Mean Corpuscular Hemoglobin 28 pg (28-32); Mean Corpuscular Volume 84 fl (79-97); Platelet Count 348 K/mm3 (140-440); Red Blood Count 4.37 M/mm3 (3.65-5.03); Red Cell Distribution Width 15.6 % (13.2-15.2)
[2018-08-31 10:38] LABS: Alanine Aminotransferase 10 units/L (7-56); Albumin 4.2 g/dL (3.9-5); BUN/Creatinine Ratio 10; Blood Urea Nitrogen 8 mg/dL (7-17); Calcium 9.3 mg/dL (8.4-10.2); Hemolysis Index 12; LDL Cholesterol,Direct 107 mg/dL (50-130)
[2018-08-31 10:49] LABS: Chol/HDL Ratio 2.81 %; HDL Cholesterol 65 mg/dL (40-59)
[2018-08-31 11:21] LABS: Basophils % (Manual) 0 % (0.0-1.8)
[2018-08-31 11:22] LABS: Total Cells Counted 100
[2018-08-31 11:23] LABS: Platelet Estimate Consistent w Auto; RBC Morphology Normal
== END 2018-08-31 09:35 | disposition home or self-care (01) ==
LOC: LAB 09:34
DX: E11.42 Type 2 diabetes mellitus with diabetic polyneuropathy (principal); I10 Essential (primary) hypertension; E78.2 Mixed hyperlipidemia; E78.00 Pure hypercholesterolemia, unspecified; J44.9 Chronic obstructive pulmonary disease, unspecified; Z79.899 Other long term (current) drug therapy; Z90.89 Acquired absence of other organs; Z90.710 Acquired absence of both cervix and uterus
CPT/HCPCS: 36415; 80053; 80061; 83036; 84443; 85007; 85025

== ENCOUNTER 2019-03-05 08:30 | Outpatient (CLI) | payer MEDICARE ==
[2019-03-05 09:10] LABS: Hematocrit 35.4 % (30.3-42.9); Hemoglobin 11.5 gm/dl (10.1-14.3); Mean Corpuscular HGB Conc 32 % (30-34); Mean Corpuscular Volume 84 fl (79-97); Platelet Count 421 K/mm3 (140-440); Red Blood Count 4.21 M/mm3 (3.65-5.03); Red Cell Distribution Width 16.3 % (13.2-15.2)
[2019-03-05 09:43] LABS: Alanine Aminotransferase 11 units/L (7-56); Albumin 3.9 g/dL (3.9-5); BUN/Creatinine Ratio 16; Blood Urea Nitrogen 11 mg/dL (7-17); Calcium 9.6 mg/dL (8.4-10.2); Hemolysis Index 12
[2019-03-05 13:01] LABS: Basophils % (Manual) 0 % (0.0-1.8); Platelet Estimate Consistent w Auto; RBC Morphology Normal; Total Cells Counted 100
== END 2019-03-05 08:31 | disposition home or self-care (01) ==
LOC: LAB 08:30
PROVIDERS: ATTEND Internal Medicine
DX: I10 Essential (primary) hypertension (principal)
CPT/HCPCS: 36415; 80053; 84156; 85007; 85025

== ENCOUNTER 2019-07-25 10:05 | Outpatient (CLI) | payer MEDICARE ==
[2019-07-25 10:44] LABS: Hematocrit 37.2 % (30.3-42.9); Hemoglobin 12.2 gm/dl (10.1-14.3); Mean Corpuscular HGB Conc 33 % (30-34); Mean Corpuscular Volume 85 fl (79-97); Platelet Count 377 K/mm3 (140-440); Red Blood Count 4.36 M/mm3 (3.65-5.03); Red Cell Distribution Width 16.3 % (13.2-15.2)
[2019-07-25 10:52] LABS: Eosinophils # (Auto) 0.1 K/mm3 (0.0-0.4); Eosinophils % (Auto) 0.9 % (0.0-4.3); Monocytes # (Auto) 0.7 K/mm3 (0.0-0.8); Monocytes % (Auto) 7.3 % (0.0-7.3)
[2019-07-25 11:08] LABS: Alanine Aminotransferase 13 units/L (7-56); BUN/Creatinine Ratio 14; Blood Urea Nitrogen 10 mg/dL (7-17); Calcium 9.5 mg/dL (8.4-10.2); Hemolysis Index 5
[2019-07-25 13:27] LABS: Total Cells Counted 100
[2019-07-25 13:28] LABS: Eosinophils % (Manual) 0 % (0.0-4.3); Platelet Estimate Consistent w Auto; RBC Morphology Normal
[2019-07-25 14:38] LABS: Creatinine,Urine 51.2 mg/dL (0.1-20.0)
[2019-07-25 14:49] LABS: Protein/Creatinine Ratio,Urine 0.08
== END 2019-07-25 10:06 | disposition home or self-care (01) ==
LOC: LAB 10:05
PROVIDERS: ATTEND Internal Medicine
DX: E11.9 Type 2 diabetes mellitus without complications (principal); I10 Essential (primary) hypertension; E87.2 Acidosis; E83.42 Hypomagnesemia; K50.90 Crohn's disease, unspecified, without complications; E87.1 Hypo-osmolality and hyponatremia; E87.6 Hypokalemia; E26.9 Hyperaldosteronism, unspecified
CPT/HCPCS: 36415; 80053; 82570; 84156; 85007; 85025

== ENCOUNTER 2020-01-31 09:49 | Outpatient (CLI) | payer MEDICARE ==
[2020-01-31 11:39] LABS: Hematocrit 36.4 % (30.3-42.9); Hemoglobin 12.7 gm/dl (10.1-14.3); Mean Corpuscular HGB Conc 35 % (30-34); Mean Corpuscular Volume 85 fl (79-97); Monocytes # (Auto) 0.6 K/mm3 (0.0-0.8); Monocytes % (Auto) 6.4 % (0.0-7.3); Red Cell Distribution Width 14.9 % (13.2-15.2)
[2020-01-31 12:00] LABS: Alanine Aminotransferase 15 units/L (7-56); Albumin 4.5 g/dL (3.9-5); Blood Urea Nitrogen 11 mg/dL (7-17); Calcium 9.9 mg/dL (8.4-10.2); Hemolysis Index 17
[2020-01-31 12:01] LABS: BUN/Creatinine Ratio 16
[2020-01-31 13:19] LABS: Band Neutrophils # (Manual) 0.1 K/mm3; Total Cells Counted 100
[2020-01-31 13:22] LABS: Platelet Count 247 K/mm3 (140-440); Platelet Estimate Consistent w Auto; RBC Morphology Normal
[2020-01-31 15:18] LABS: Creatinine,Urine 24.2 mg/dL (0.1-20.0); Protein/Creatinine Ratio,Urine 0.17
== END 2020-01-31 09:50 | disposition home or self-care (01) ==
LOC: LAB 09:49
PROVIDERS: ATTEND Internal Medicine
DX: I10 Essential (primary) hypertension (principal)
CPT/HCPCS: 36415; 80053; 82570; 84156; 85007; 85025

== ENCOUNTER 2020-07-15 09:25 | Outpatient (CLI) | payer MEDICARE ==
[2020-07-15 09:58] LABS: Hematocrit 38.2 % (30.3-42.9); Hemoglobin 12.4 gm/dl (10.1-14.3); Mean Corpuscular HGB Conc 32 % (30-34); Mean Corpuscular Volume 86 fl (79-97); Platelet Count 354 K/mm3 (140-440); Red Blood Count 4.47 M/mm3 (3.65-5.03); Red Cell Distribution Width 16.1 % (13.2-15.2)
[2020-07-15 10:02] LABS: Basophils # (Auto) 0.1 K/mm3 (0.0-0.1); Eosinophils # (Auto) 0.3 K/mm3 (0.0-0.4); Eosinophils % (Auto) 2.6 % (0.0-4.3); Monocytes # (Auto) 0.6 K/mm3 (0.0-0.8); Monocytes % (Auto) 5.5 % (0.0-7.3)
[2020-07-15 10:14] LABS: Alanine Aminotransferase 12 units/L (7-56); Albumin 4.3 g/dL (3.9-5); Blood Urea Nitrogen 9 mg/dL (7-17); Calcium 8.7 mg/dL (8.4-10.2); Hemolysis Index 0
[2020-07-15 10:15] LABS: BUN/Creatinine Ratio 13
[2020-07-15 10:44] LABS: Band Neutrophils # (Manual) 0.1 K/mm3; Total Cells Counted 100
[2020-07-15 10:45] LABS: Large Platelets Few; Platelet Estimate Consistent w Auto; RBC Morphology Normal
[2020-07-15 13:57] LABS: Creatinine,Urine 28.2 mg/dL (0.1-20.0); Protein/Creatinine Ratio,Urine 0.14
== END 2020-07-15 09:26 | disposition home or self-care (01) ==
LOC: LAB 09:25
PROVIDERS: ATTEND Internal Medicine
DX: I10 Essential (primary) hypertension (principal)
CPT/HCPCS: 36415; 80053; 82570; 84156; 85007; 85025

== ENCOUNTER 2021-01-12 08:40 | Outpatient (CLI) | payer MEDICARE ==
[2021-01-12 09:08] LABS: Hemoglobin 12.1 gm/dl (10.1-14.3); Mean Corpuscular HGB Conc 32 % (30-34); Mean Corpuscular Volume 87 fl (79-97); Platelet Count 342 K/mm3 (140-440); Red Blood Count 4.37 M/mm3 (3.65-5.03); Red Cell Distribution Width 14.7 % (13.2-15.2)
[2021-01-12 09:32] LABS: Alanine Aminotransferase 14 units/L (7-56); Albumin 4.2 g/dL (3.9-5); Blood Urea Nitrogen 7 mg/dL (7-17); Calcium 9.1 mg/dL (8.4-10.2); Hemolysis Index 11
[2021-01-12 09:41] LABS: BUN/Creatinine Ratio 10
[2021-01-12 12:53] LABS: Creatinine,Urine 134.6 mg/dL (0.1-20.0)
[2021-01-12 13:04] LABS: Total Cells Counted 100
[2021-01-12 13:05] LABS: Platelet Estimate Consistent w Auto; RBC Morphology Normal
== END 2021-01-12 08:41 | disposition home or self-care (01) ==
LOC: LAB 08:40
PROVIDERS: ATTEND Internal Medicine
DX: I10 Essential (primary) hypertension (principal); E87.2 Acidosis
CPT/HCPCS: 36415; 80053; 82570; 84156; 85007; 85025

== ENCOUNTER 2021-04-20 07:08 | Day surgery (SDC) | payer MEDICARE ==
[~2021-04-20 07:08] MED LIST: SODIUM CHLORIDE 0.9% 1000 ML 1,000 ML IV SCH
--- NOTE | 2021-04-20 07:51 | Anesthesia Consultation ---
Anesthesia Consult and Med Hx Date of service: 04/20/21 - Pre-Operative Health Status ASA Pre-Surgery Classification: ASA3 Proposed Anesthetic Plan: MAC - Pulmonary Hx Smoking: Yes (as a teenager) Hx Asthma: Yes Hx Respiratory Symptoms: Yes SOB: Yes COPD: Yes Hx Pneumonia: Yes Hx Sleep Apnea: Yes - Cardiovascular System Hx Hypertension: Yes Hx Coronary Artery Disease: Yes (ekg and echo 1-2 months ago) Hx Heart Attack/AMI: Yes (x2. 10-11 years ago) Hx Angina: Yes (last time nitroglycerin used was 2 months ago) Hx Percutaneous Transluminal Coronary Angioplasty (PTCA): No Hx Cardia Arrhythmia: No Hx Pacemaker: No Hx Internal Defibrillator: No Hx Valvular Heart Disease: No Hx Heart Murmur: No Hx Peripheral Vascular Disease: No - Central Nervous System Hx Neuromuscular Disorder: No Hx Seizures: No CVA: No Hx Back Pain: No Hx Psychiatric Problems: Yes (depression) - Gastrointestinal Hx Ulcer: No Hx Gastroesophageal Reflux Disease: Yes (controlled with medication) - Endocrine Hx Renal Disease: Yes (pt sees a metal trim erector but does not remember the name of disease) Hx Cirrhosis: No Hx Liver Disease: No 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
--- NOTE | 2021-04-20 07:52 | Anesthesia Day of Surgery ---
Anesthesia Day of Surgery - Day of Surgery Patient Examined: Yes Patient H&P Reviewed: Yes Patient is NPO: Yes
[2021-04-20] MEDS ORDERED: propofoL 200 MG/20 ML VIAL IV ONE ×2 (08:05→08:11)
[2021-04-20] MEDS ORDERED: LIDOCAINE MPF (2%) 20 MG/1 ML VIAL 5 ML ONE (08:05)
--- NOTE | 2021-04-20 08:40 | Operative Report ---
Operative Report Operative Report: DOS: 04/20/21 SURGEON: Primitivo Prasad MD COLONOSCOPY WITH SNARE POLYPECTOMY AND BIOPSY POLYPECTOMY REPORT PREOPERATIVE AND POSTOPERATIVE DIAGNOSIS: Personal history of colon polyps DESCRIPTION OF PROCEDURE: The colonoscope was passed to the terminal ileum as identified by the ileal tissue. Scope was carefully withdrawn. Retroflexion was performed in the rectum. At the end of procedure, the scope was cleaned using normal technique. Vital signs monitored continuously throughout. SEDATION: Provided by Anesthesiology Services. Quality of the prep was adequate. COMPLICATIONS: None. ESTIMATED BLOOD LOSS: Minimal FINDINGS: * Normal terminal ileum * Single 4 mm sessile polyp in the ascending colon removed by cold snare polypectomy * Single 2 mm sessile polyp in the transverse colon removed by cold biopsy polypectomy * Single 7 mm sessile polyp in the transverse colon removed by hot snare polypectomy * 5 sessile polyps in the transverse colon ranging in size from 3 to 6 mm removed by cold snare polypectomy * 3 sessile polyps in the sigmoid colon ranging in size from 3 to 7 mm removed by cold snare polypectomy * Remainder of exam unremarkable RECOMMENDATIONS: Repeat colonoscopy in 1 to 3 years based upon pathology results
[2021-04-20 09:43] VITALS: BP 127/51
--- NOTE | 2021-04-20 10:43 | Post Anesthesia Evaluation ---
- Post Anesthesia Evaluation Patient Participated: Yes Airway Patent: Yes Stable Respiratory Function: Yes Nausea/Vomiting: No Temp > 96.8F: Yes Pain Manageable: Yes Adequeate Hydration: Yes Anesthesia Complications: No
== END 2021-04-20 09:25 | disposition home or self-care (01) ==
LOC: GIO 07:08
PROVIDERS: ATTEND Internal Medicine Gastroenterology
DX: Z12.11 Encounter for screening for malignant neoplasm of colon (principal); D12.3 Benign neoplasm of transverse colon; D12.2 Benign neoplasm of ascending colon; K63.89 Other specified diseases of intestine; I25.10 Atherosclerotic heart disease of native coronary artery without angina pectoris; E78.00 Pure hypercholesterolemia, unspecified; J44.9 Chronic obstructive pulmonary disease, unspecified; K21.9 Gastro-esophageal reflux disease without esophagitis; E11.9 Type 2 diabetes mellitus without complications; F32.9 Major depressive disorder, single episode, unspecified; Z86.010 Personal history of colon polyps; Z79.899 Other long term (current) drug therapy; Z79.4 Long term (current) use of insulin; Z87.891 Personal history of nicotine dependence; Z87.440 Personal history of urinary (tract) infections; Z87.01 Personal history of pneumonia (recurrent); Z90.710 Acquired absence of both cervix and uterus; Z98.890 Other specified postprocedural states
CPT/HCPCS: 45380; 45385; 82962; 88305; J2704; J3490; J7030; J7120; Q0162

== ENCOUNTER 2021-04-22 09:16 | Outpatient (CLI) | payer MEDICARE | END 2021-04-22 09:17 | disposition home or self-care (01) | LOC: LAB 09:16 | PROVIDERS: ATTEND Internal Medicine Gastroenterology | DX: R19.7 Diarrhea, unspecified (principal) | CPT/HCPCS: 36415; 83516 ==

== ENCOUNTER 2021-07-20 09:27 | Outpatient (CLI) | payer MEDICARE ==
[2021-07-20 10:41] LABS: Basophils # (Auto) 0.1 K/mm3 (0.0-0.1); Basophils % (Auto) 1.2 % (0.0-1.8); Eosinophils # (Auto) 0.1 K/mm3 (0.0-0.4); Eosinophils % (Auto) 1.4 % (0.0-4.3); Hematocrit 38.8 % (30.3-42.9); Hemoglobin 12.3 gm/dl (10.1-14.3); Lymphocytes # (Auto) 2.7 K/mm3 (1.2-5.4); Lymphocytes % (Auto) 30.7 % (13.4-35.0); Mean Corpuscular HGB Conc 32 % (30-34); Mean Corpuscular Volume 85 fl (79-97); Monocytes # (Auto) 0.7 K/mm3 (0.0-0.8); Monocytes % (Auto) 7.7 % (0.0-7.3); Platelet Count 344 K/mm3 (140-440); Red Blood Count 4.55 M/mm3 (3.65-5.03); Red Cell Distribution Width 14.8 % (13.2-15.2)
[2021-07-20 11:05] LABS: Alanine Aminotransferase 18 units/L (7-56); Albumin 4.6 g/dL (3.9-5); Blood Urea Nitrogen 8 mg/dL (7-17); Calcium 9.6 mg/dL (8.4-10.2); Chol/HDL Ratio 3.69 %; Hemolysis Index 0
[2021-07-20 11:32] LABS: BUN/Creatinine Ratio 13
[2021-07-20 12:23] LABS: Creatinine,Urine 61.3 mg/dL (0.1-20.0)
[2021-07-20 12:48] LABS: Microalbumin/Creatinine Ratio 24.4 ug/mg
[2021-07-20 13:23] LABS: Creatinine,Urine 61.2 mg/dL (0.1-20.0); Protein/Creatinine Ratio,Urine 0.16
== END 2021-07-20 09:28 | disposition home or self-care (01) ==
LOC: LAB 09:27
PROVIDERS: ATTEND Emergency Medicine
DX: I10 Essential (primary) hypertension (principal); E87.6 Hypokalemia; E78.2 Mixed hyperlipidemia; K50.90 Crohn's disease, unspecified, without complications; E87.1 Hypo-osmolality and hyponatremia; E26.9 Hyperaldosteronism, unspecified; E11.9 Type 2 diabetes mellitus without complications
CPT/HCPCS: 36415; 80053; 80061; 82043; 82570; 83036; 84156; 85025